=== PATIENT | male | born 1975 | race Two or more races ===

== ENCOUNTER 2016-06-18 20:20 | Emergency (ER) | payer MEDICAID, OTHER ==
[2016-06-18] MEDS ORDERED: ACETAMINOPHEN 325 MG TABLET PO ONE (20:57)
--- NOTE | 2016-06-18 20:57 | ER Document Report ---
ED Medical Screen (RME) - General Stated Complaint: LEFT SHOULDER PAIN Notes: patient is a 41 year old male p/w left arm pain that started today that radiates along his back and chest. feels better with movement. denies trauma admits to ache along his chest that is reproducible to palpation CTAB, nl s1s2 took vicodin earlier and he was able to fall asleep I have greeted and performed a rapid initial assessment of this patient. A comprehensive ED assessment and evaluation of the patient, analysis of test results and completion of the medical decision making process will be conducted by additional ED providers. - Related Data Allergies/Adverse Reactions: No Known Allergies Allergy (Unverified 06/18/16 20:54) Physical Exam - Vital signs Vitals: Temp Pulse Resp BP Pulse Ox 98.3 F 70 16 151/115 H 97 06/18/16 20:50 06/18/16 20:50 06/18/16 20:50 06/18/16 20:50 06/18/16 20:50 Course - Vital Signs Vital signs: Temp Pulse Resp BP Pulse Ox 98.3 F 70 16 151/115 H 97 06/18/16 20:50 06/18/16 20:50 06/18/16 20:50 06/18/16 20:50 06/18/16 20:50
[2016-06-18] MEDS ORDERED: CYCLOBENZAPRINE HCL 10 MG TABLET PO ONE (20:58)
[2016-06-18] MEDS ORDERED: DIAZEPAM 5 MG TABLET PO ONE (23:45)
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
[2016-06-19 00:35] VITALS: BP 137/98
--- NOTE | 2016-06-19 08:47 | EKG REPORT ---
SEVERITY:- NORMAL ECG - SINUS RHYTHM : Confirmed by: Ishmael Brewer MD 19-Jun-2016 08:47:07
== END 2016-06-19 00:33 | disposition home or self-care (01) ==
LOC: ER 20:20
DX: M25.512 Pain in left shoulder (principal); M79.602 Pain in left arm; R07.89 Other chest pain; I10 Essential (primary) hypertension; F17.200 Nicotine dependence, unspecified, uncomplicated; Z79.899 Other long term (current) drug therapy
CPT/HCPCS: 93005; 99283; 73030; 93010; J3490 ×2

== ENCOUNTER 2017-10-13 13:33 | Inpatient (IN) | payer MEDICAID ==
[2017-10-13] MEDS ORDERED: MORPHINE SULFATE 10 MG/ML INJ IV ONE (14:56)
[2017-10-13] MEDS ORDERED: ONDANSETRON HCL INJ/PF 4 MG/2 ML SDV IV ONE (14:56)
--- NOTE | 2017-10-13 15:00 | ER Document Report ---
ED General - General Chief Complaint: Abdominal Pain Stated Complaint: ABDOMINAL PAIN Time Seen by Provider: 10/13/17 14:55 TRAVEL OUTSIDE OF THE [place] IN LAST 30 DAYS: No - HPI Notes: Patient is a 42-year-old male with a history of hypertension who presents to the ED complaining of left lower quadrant abdominal pain 2 days with associated nausea and vomiting. Patient states that he has also been somewhat constipated, but is still having bowel movements. The pain does not radiate. Patient is concerned about diverticulitis. He has not had any hematemesis, melena, or hematochezia. He is still urinating normally without any hematuria or dysuria. Patient states that he has never had a colonoscopy performed in the past. The pain is worsened with pressure applied to that area and when he ambulates. Denies any injury. Patient states that he has had decreased p.o. intake and his last intake was a sip of water about 20 minutes ago. Denies any headache, fever, head injury, neck pain, URI, sore throat, chest pain, palpitations, syncope, cough, shortness of breath, wheeze, dyspnea, diarrhea, urinary retention, dysuria, hematuria, back pain, loss of control of bowel or bladder, numbness/tingling, saddle anesthesia, muscle paralysis/weakness, or rash. - Related Data Allergies/Adverse Reactions: acetaminophen [From Tylenol] Adverse Reaction (Verified 10/13/17 13:34) Past Medical History - Social History Smoking Status: Never Smoker Family History: Reviewed & Not Pertinent Renal/ Medical History: Denies: Hx Peritoneal Dialysis Review of Systems - Review of Systems -: Yes All other systems reviewed and negative Physical Exam - Vital signs Vitals: Temp Pulse Resp BP Pulse Ox 98.5 F 86 20 107/73 96 10/13/17 13:38 10/13/17 13:38 10/13/17 13:38 10/13/17 13:38 10/13/17 13:38 - Notes Notes: PHYSICAL EXAMINATION: GENERAL: Well-appearing, well-nourished and in no acute distress. HEAD: Atraumatic, normocephalic. EYES: Pupils equal round and reactive to light, extraocular movements intact, sclera anicteric, conjunctiva are normal. ENT: Nares patent and without discharge. oropharynx clear without exudates. No tonsilar hypertrophy or erythema. Moist mucous membranes. NECK: Normal range of motion, supple without lymphadenopathy LUNGS: Breath sounds clear to auscultation bilaterally and equal. No wheezes rales or rhonchi. HEART: Regular rate and rhythm without murmurs, rubs, gallops. ABDOMEN: Soft, nondistended abdomen. No guarding, no rebound. No masses appreciated. Normal bowel sounds present. No CVA tenderness bilaterally. + tenderness to the LLQ to palp and percussion. : No obvious hernia, erythema, swelling, warmth, ulceration, rash, or lesions. No urethral discharge. No testicular or penile tenderness. No obvious inguinal adenopathy. Musculoskeletal: FROM to passive/active. Strength 5+/5. Extremities: No cyanosis, clubbing, or edema b/l. Peripheral pulses 2+. Capillary refill less than 3 seconds. NEUROLOGICAL: Normal speech, normal gait. PSYCH: Normal mood, normal affect. SKIN: Warm, Dry, normal turgor, no rashes or lesions noted. Course - Re-evaluation Re-evalutation: 10/13/17 19:36 Patient is an afebrile, well-hydrated, 42-year-old male who presents to the ED with a diverticulitis as well as a nonobstructing renal calculi of the left side. Vitals are currently acceptable, but will add another liter of fluid for his blood pressure. PE is otherwise unremarkable. CBC showed an elevated white count with left shift, no bandemia. CMP generally unremarkable with a creatinine of 1.33. Urinalysis was grossly unremarkable. See CT scan result. Patient has received 2 L of fluid thus far. I did order for Cipro IV as well as Flagyl IV. I did call and review with Dr. Bliss, hospitalist, who accepted patient for admit to the medical floor. Patient is in agreement with plan. - Vital Signs Vital signs: Temp Pulse Resp BP Pulse Ox 98.2 F 74 18 98/68 L 99 10/13/17 19:21 10/13/17 19:21 10/13/17 19:21 10/13/17 19:21 10/13/17 19:21 - Laboratory Result Diagrams: 10/13/17 16:55 10/13/17 18:00 Laboratory results interpreted by me: 10/13/17 10/13/17 10/13/17 16:55 18:00 18:00 WBC 18.6 H Lymphocytes % 12.7 L Absolute Neutrophils 13.9 H Absolute Monocytes 1.8 H Creatinine 1.33 H Est GFR (Non-Af Amer) 58 L Albumin 3.4 L Urine Ketones 20 H Urine Blood SMALL H Discharge - Discharge Clinical Impression: Diverticulitis Condition: Stable Disposition: ADMITTED INPATIENT Admitting Provider: Hospitalist - Dr. Bliss Unit Admitted: Medical Floor
[2017-10-13] MEDS: NORMAL SALINE 1000 ML 1,000 ML IV PRN ×2 (17:00→17:55)
[2017-10-13] MEDS ORDERED: KETOROLAC TROMETHAMINE INJ/PF 30 MG/1 ML SDV IV ONE (17:05)
[2017-10-13 17:10] LABS: ABSOLUTE BASOPHILS # (AUTO) 0.1 10^3/uL (0.0-0.2); ABSOLUTE EOSINOPHILS # (AUTO) 0.4 10^3/uL (0.0-0.6); ABSOLUTE LYMPHOCYTES (AUTO) 2.3 10^3/uL (0.5-4.7); ABSOLUTE MONOCYTES (AUTO) 1.8 10^3/uL (0.1-1.4); ABSOLUTE NEUT (AUTO) 13.9 10^3/uL (1.7-8.2); BASOPHILS % (AUTO) 0.7 % (0-2); HEMATOCRIT 45.8 % (37.9-51.0); HEMOGLOBIN 15.6 g/dL (13.5-17.0); LYMPHOCYTES % (AUTO) 12.7 % (13-45); MEAN CORPUSCULAR HEMOGLOBIN 31.9 pg (27.0-33.4); MEAN CORPUSCULAR VOLUME 94 fl (80-97); PLATELET COUNT 300 10^3/uL (150-450); RED BLOOD COUNT 4.89 10^6/uL (4.35-5.55); SEGMENTED NEUTROPHILS % (AUTO) 74.6 % (42-78); TOTAL CELLS COUNTED % (AUTO) 100 %; WHITE BLOOD COUNT 18.6 10^3/uL (4.0-10.5)
[2017-10-13 18:21] LABS: APPEARANCE,URINE CLEAR; BILIRUBIN,URINE NEGATIVE (NEGATIVE); COLOR,URINE YELLOW; GLUCOSE, URINE NEGATIVE (NEGATIVE); KETONES,URINE 20 mg/dL (NEGATIVE); LEUKOCYTE ESTERASE,URINE NEGATIVE (NEGATIVE); NITRITE,URINE NEGATIVE (NEGATIVE); PROTEIN,URINE NEGATIVE (NEGATIVE); URINE SPECIFIC GRAVITY 1.017; UROBILINOGEN,URINE NEGATIVE mg/dL (<2.0)
[2017-10-13 18:34] LABS: ALANINE AMINOTRANSFERASE 47 U/L (21-72); ALBUMIN 3.4 g/dL (3.5-5.0); ALKALINE PHOSPHATASE 87 U/L (38-126); ANION GAP 11 (5-19); ASPARTATE AMINO TRANSFERASE 24 U/L (17-59); BILIRUBIN,DIRECT 0.4 mg/dL (0.0-0.4); BILIRUBIN,TOTAL 0.6 mg/dL (0.2-1.3); BLOOD UREA NITROGEN 15 mg/dL (7-20); CALCIUM 9.4 mg/dL (8.4-10.2); CARBON DIOXIDE 28 mmol/L (22-30); CHLORIDE 105 mmol/L (98-107); GLUCOSE 83 mg/dL (75-110); LIPASE 43.3 U/L (23-300); SODIUM 143.9 mmol/L (137-145); TOTAL PROTEIN 6.9 g/dL (6.3-8.2)
--- NOTE | 2017-10-13 18:53 | RADIOLOGY REPORT (SQ) ---
EXAM DESCRIPTION: CT ABD/PELVIS WITH IV ONLY COMPLETED DATE/TIME: 10/13/2017 6:35 pm REASON FOR STUDY: LLQ pain, n/v COMPARISON: None. TECHNIQUE: CT scan of the abdomen and pelvis performed using helical scanning technique with dynamic intravenous contrast injection. No oral contrast. Images reviewed with lung, soft tissue, and bone windows. Reconstructed coronal and sagittal MPR images reviewed. Delayed images for evaluation of the urinary system also acquired. All images stored on PACS. All CT scanners at this facility use dose modulation, iterative reconstruction, and/or weight based d osing when appropriate to reduce radiation dose to as low as reasonably achievable (ALARA). [facility]: Dose Right [facility]: CareDose [facility]: Dose Right [facility]: Teradose 4D [facility]: [employer] CONTRAST TYPE AND DOSE: contrast/concentration: Isovue 370.00 mg/ml; Total Contrast Delivered: 100.0 ml; Total Saline Delivered: 50.0 ml RENAL FUNCTION: None required. The patient is less than 50 years old. RADIATION DOSE: CT Rad equipment meets quality standard of care and radiation dose reduction techniq ues were employed. CTDIvol: 17.8 - 20.4 mGy. DLP: 2186 mGy-cm.. LIMITATIONS: None. FINDINGS: LOWER CHEST: No significant findings. No nodules or infiltrates. LIVER: Normal size. No masses. No dilated ducts. SPLEEN: Normal size. No focal lesions. PANCREAS: No masses. No significant calcifications. No adjacent inflammation or peripancreatic fluid collections. Pancreatic duct not dilated. GALLBLADDER: No identified stones by CT criteria. No inflammatory changes to suggest cholecystitis. ADRENAL GLANDS: No significant masses or asymmetry. RIGHT KIDNEY AND URETER: No solid masses. A small nonobstructing upper calyceal calculus. No hydr onephrosis or hydroureter. LEFT KIDNEY AND URETER: No solid masses. 5 mm nonobstructing lower calyceal calculus. No hydronep hrosis or hydroureter. AORTA AND VESSELS: No aneurysm. No dissection. Renal arteries, SMA, celiac without stenosis. RETROPERITONEUM: No retroperitoneal adenopathy, hemorrhage or masses. BOWEL AND PERITONEAL CAVITY: There is thickening of the wall of the terminal ileum the ascending colo n. Sigmoid diverticulosis is present. There is focal area of thickening of the sigmoid with strandi ng in the fat. APPENDIX: Normal. PELVIS: No mass. No free fluid. Normal bladder. ABDOMINAL WALL: No masses. No hernias. BONES: No significant or acute findings. OTHER: No other significant finding. IMPRESSION: 1. Nonobstructing intrarenal calculi. 2. Apparent thickening of the wall of the terminal ileum and the ascending colon concerning for infl ammatory bowel disease. Could be secondary to mere nondistention. 3. Mild sigmoid diverticulitis. TECHNICAL DOCUMENTATION: JOB ID: [id number] Quality ID # [id number]: Final reports with documentation of one or more dose reduction techniques (e.g., Au tomated exposure control, adjustment of the mA and/or kV according to patient size, use of iterative reconstruction technique) 2010 [employer]- All Rights Reserved Reading location - IP/workstation name: [email or web address]
[2017-10-13] MEDS ORDERED: CIPROFLOXACIN 400 MG/D5W RTU 400 MG/200 ML RTUPB IV ONE (19:29)
[2017-10-13] MEDS ORDERED: METRONIDAZOLE 500 MG/NS RTU 100 ML IV ONE (19:30)
[2017-10-13] MEDS ORDERED: NORMAL SALINE 1000 ML 1,000 ML IV ONE (19:34)
[2017-10-13] MEDS ORDERED: FENTANYL CITRATE INJ/PF 100 MCG/2 ML AMPUL IV ONE (19:37)
[2017-10-13] MEDS ORDERED: ACETAMINOPHEN 325 MG TABLET PO PRN ×2 (19:38)
[2017-10-13] MEDS ORDERED: IPRATROPIUM/ALBUTEROL 0.5-2.5 MG/3 ML AMPUL NEB PRN (19:38)
[2017-10-13] MEDS ORDERED: NORMAL SALINE 1000 ML 1,000 ML IV SCH (19:45)
[2017-10-14] MEDS: HEPARIN SOD (PORCINE) 5,000 UNIT/ML 1 ML SYRINGE SUBCUT SCH ×4 (03:53→20:16)
--- NOTE | 2017-10-14 05:29 | PDOC H&P ---
History of Present Illness Admission Date/PCP: 10/13/17 19:37 Patient complains of: Abdominal pain nausea vomiting History of Present Illness: RICHY DUCKWORTH is a 42 year old male with past medical history of hypertension presenting with 2 days of fever, abdominal pain nausea and vomiting of gastric contents. In the emergency room he is found to have acute diverticulitis by exam and supported by positive findings of CT imaging and marketed leukocytosis. He started on empiric antibiotics, symptomatic management and referred to the hospitalist for admission. Patient denies previous episode, exceptional constipation, recent antibiotics and is otherwise felt well. Past Medical History Cardiac Medical History: Reports: Hypertension Psychiatric Medical History: Reports: Tobacco Dependency Social History Information Source: Patient Smoking Status: Current Every Day Smoker Cigarettes Packs Per Day: 1 Frequency of Alcohol Use: None Hx Recreational Drug Use: No Drugs: None Hx Prescription Drug Abuse: No - Advance Directive Resuscitation Status: Full Code Family History Family History: Hypertension Parental Family History Reviewed: Yes Children Family History Reviewed: Yes Sibling(s) Family History Reviewed.: Yes Medication/Allergy Home Medications: Amlodipine Besylate [Norvasc 5 mg Tablet] 5 mg PO DAILY 10/13/17 Lisinopril/Hydrochlorothiazide [Lisinopril-Hctz 20-12.5 mg Tab] 1 tab PO Q12 11/23 Metoprolol Succinate [Toprol Xl] 25 mg PO DAILY 10/13/17 Allergies/Adverse Reactions: acetaminophen [From Tylenol] Adverse Reaction (Verified 10/13/17 13:34) Review of Systems Constitutional: ABSENT: chills, fever(s), headache(s), weight gain, weight loss Eyes: ABSENT: visual disturbances Ears: ABSENT: hearing changes Cardiovascular: ABSENT: chest pain, dyspnea on exertion, edema, orthropnea, palpitations Respiratory: ABSENT: cough, hemoptysis Gastrointestinal: ABSENT: abdominal pain, constipation, diarrhea, hematemesis, hematochezia, nausea, vomiting Genitourinary: ABSENT: dysuria, hematuria Musculoskeletal: ABSENT: joint swelling Integumentary: ABSENT: rash, wounds Neurological: ABSENT: abnormal gait, abnormal speech, confusion, dizziness, focal weakness, syncope Psychiatric: ABSENT: anxiety, depression, homidical ideation, suicidal ideation Endocrine: ABSENT: cold intolerance, heat intolerance, polydipsia, polyuria Hematologic/Lymphatic: ABSENT: easy bleeding, easy bruising Physical Exam Vital Signs: Temp Pulse Resp BP Pulse Ox 98.5 F 81 16 105/86 H 98 10/14/17 00:00 10/14/17 00:00 10/14/17 00:00 10/14/17 00:00 10/14/17 00:00 Intake & Output 10/12/17 10/13/17 10/14/17 11:59 11:59 11:59 Weight 102 kg General appearance: PRESENT: cooperative, mild distress, well-developed, well- nourished Head exam: PRESENT: atraumatic, normocephalic Eye exam: PRESENT: conjunctiva pink, EOMI, PERRLA. ABSENT: scleral icterus Ear exam: PRESENT: normal external ear exam Mouth exam: PRESENT: moist, tongue midline Neck exam: ABSENT: carotid bruit, JVD, lymphadenopathy, thyromegaly Respiratory exam: PRESENT: clear to auscultation [place]ie. ABSENT: rales, rhonchi, wheezes Cardiovascular exam: PRESENT: RRR. ABSENT: diastolic murmur, rubs, systolic murmur Pulses: PRESENT: normal dorsalis pedis pul Vascular exam: PRESENT: normal capillary refill GI/Abdominal exam: PRESENT: normal bowel sounds, soft, tenderness - Left lower quadrant. ABSENT: distended, guarding, mass, organolmegaly, rebound Rectal exam: PRESENT: deferred Extremities exam: PRESENT: full ROM. ABSENT: calf tenderness, clubbing, pedal edema Neurological exam: PRESENT: alert, awake, oriented to person, oriented to place , oriented to time, oriented to situation, CN II-XII grossly intact. ABSENT: motor sensory deficit Psychiatric exam: PRESENT: appropriate affect, normal mood. ABSENT: homicidal ideation, suicidal ideation Skin exam: PRESENT: dry, intact, warm. ABSENT: cyanosis, rash Results Impressions: Abdomen/Pelvis CT 10/13/17 14:57 IMPRESSION: 1. Nonobstructing intrarenal calculi. 2. Apparent thickening of the wall of the terminal ileum and the ascending colon concerning for inflammatory bowel disease. Could be secondary to mere nondistention. 3. Mild sigmoid diverticulitis. Assessment & Plan - Diagnosis (1) Diverticulitis Is this a current diagnosis for this admission?: Yes Plan: N.p.o., Jenni and Sydney, follow-up CBC and blood culture (2) Nausea & vomiting Is this a current diagnosis for this admission?: Yes Plan: Secondary to #1 symptomatic management (3) Abdominal pain Is this a current diagnosis for this admission?: Yes Plan: Secondary to #1 systematic management - Time Time Spent: 30 to 50 Minutes
[2017-10-14] MEDS: METRONIDAZOLE 500 MG TABLET PO SCH ×4 (05:37→23:45)
[2017-10-14] MEDS: CIPROFLOXACIN 400 MG/D5W RTU 400 MG/200 ML RTUPB IV SCH ×2 (05:37→17:27)
[2017-10-14 07:32] LABS: ABSOLUTE BASOPHILS # (AUTO) 0.1 10^3/uL (0.0-0.2); ABSOLUTE EOSINOPHILS # (AUTO) 0.5 10^3/uL (0.0-0.6); ABSOLUTE LYMPHOCYTES (AUTO) 2.5 10^3/uL (0.5-4.7); ABSOLUTE MONOCYTES (AUTO) 1.6 10^3/uL (0.1-1.4); ABSOLUTE NEUT (AUTO) 9.8 10^3/uL (1.7-8.2); BASOPHILS % (AUTO) 0.4 % (0-2); EOSINOPHILS % (AUTO) 3.2 % (0-6); HEMATOCRIT 37.7 % (37.9-51.0); LYMPHOCYTES % (AUTO) 17.1 % (13-45); MEAN CORPUSCULAR HEMOGLOBIN 32.1 pg (27.0-33.4); MEAN CORPUSCULAR HGB CONC 34.2 g/dL (32.0-36.0); MEAN CORPUSCULAR VOLUME 94 fl (80-97); MONOCYTES % (AUTO) 11.1 % (3-13); PLATELET COUNT 250 10^3/uL (150-450); RED BLOOD COUNT 4.02 10^6/uL (4.35-5.55); RED CELL DISTRIBUTION WIDTH 12.8 % (11.5-14.0); SEGMENTED NEUTROPHILS % (AUTO) 68.2 % (42-78); TOTAL CELLS COUNTED % (AUTO) 100 %; WHITE BLOOD COUNT 14.4 10^3/uL (4.0-10.5)
[2017-10-14 07:39] LABS: HEMOGLOBIN 12.9 g/dL (13.5-17.0)
[2017-10-14 07:53] LABS: ANION GAP 10 (5-19); BLOOD UREA NITROGEN 13 mg/dL (7-20); CALCIUM 8.4 mg/dL (8.4-10.2); CARBON DIOXIDE 23 mmol/L (22-30); CHLORIDE 109 mmol/L (98-107); GLUCOSE 83 mg/dL (75-110); POTASSIUM 3.7 mmol/L (3.6-5.0); SODIUM 141.7 mmol/L (137-145)
[2017-10-14] MEDS: FENTANYL CITRATE INJ/PF 100 MCG/2 ML AMPUL IV PRN ×2 (08:46→18:28)
[2017-10-14] MEDS: NICOTINE 14 MG/24 HR PATCH.TD24 TD SCH (08:47)
--- NOTE | 2017-10-14 20:08 | PDOC PROGRESS REPORT ---
Subjective Progress Note for:: 10/14/17 Subjective:: Still with left lower quadrant abdominal pain. He tolerated clear liquid diet and would like advance. No fever or chills, no chest pain or shortness of breath or palpitations. Reason For Visit: DIVERTICULITS Physical Exam Vital Signs: Temp Pulse Resp BP Pulse Ox 98.6 F 70 14 109/75 99 10/14/17 15:35 10/14/17 16:00 10/14/17 16:00 10/14/17 15:35 10/14/17 16:00 Intake & Output 10/13/17 10/14/17 10/15/17 06:59 06:59 06:59 Intake Total 500 Balance 500 Weight 102 kg GEN: NAD, well-developed, well-nourished CV: RRR, NL S1S2 LUNGS: CTA bilaterally ABDOMEN Soft, left lower quadrant tenderness, no rebound or guarding, +BS EXTERMITIES: No e/c/c NEURO: Alert, oriented 3, nonfocal Results Laboratory Results: 10/14/17 06:57 10/14/17 06:57 10/14/17 10/14/17 06:57 06:57 WBC 14.4 H RBC 4.02 L Hgb 12.9 L D Hct 37.7 L MCV 94 MCH 32.1 MCHC 34.2 RDW 12.8 Plt Count 250 Seg Neutrophils % 68.2 Lymphocytes % 17.1 Monocytes % 11.1 Eosinophils % 3.2 Basophils % 0.4 Absolute Neutrophils 9.8 H Absolute Lymphocytes 2.5 Absolute Monocytes 1.6 H Absolute Eosinophils 0.5 Absolute Basophils 0.1 Sodium 141.7 Potassium 3.7 Chloride 109 H Carbon Dioxide 23 Anion Gap 10 BUN 13 Creatinine 1.12 Est GFR ( Amer) > 60 Est GFR (Non-Af Amer) > 60 Glucose 83 Calcium 8.4 Impressions: Abdomen/Pelvis CT 10/13/17 14:57 IMPRESSION: 1. Nonobstructing intrarenal calculi. 2. Apparent thickening of the wall of the terminal ileum and the ascending colon concerning for inflammatory bowel disease. Could be secondary to mere nondistention. 3. Mild sigmoid diverticulitis. Assessment & Plan - Inpatient Certification Based on my medical assessment, after consideration of the patient's comorbidities, presenting symptoms, or acuity I expect that the services needed warrant INPATIENT care.: Yes I certify that my determination is in accordance with my understanding of Medicare's requirements for reasonable and necessary INPATIENT services [42 CFR 412.3e].: Yes Medical Necessity: Need Close Monitoring Due to Risk of Patient Decompensation, Need For IV Fluids, Need for IV Antibiotics - Plan Summary Plan Summary: (1) Diverticulitis Is this a current diagnosis for this admission?: Yes Plan: Patient with some improvement, will continue with IV Cipro and Flagyl for now. Follow-up CBC and blood culture. Will advance diet as tolerated. We will switch antibiotics to p.o. if tolerating oral diet. (2) Nausea & vomiting Is this a current diagnosis for this admission?: Yes Plan: Secondary to #1. Improved. Continue symptomatic management. Continue IV antibiotics for #1 for now until patient is able to tolerate diet better. (3) Abdominal pain Is this a current diagnosis for this admission?: Yes Plan: Secondary to #1. Continue systematic management. (4) acute kidney injury Is this a current diagnosis for this admission?: Yes Plan: Secondary to decrease p.o. intake secondary to #1. Creatinine already improving. We will continue IV fluids. Diet as tolerated.
[2017-10-14] MEDS ORDERED: NORMAL SALINE 1000 ML 1,000 ML IV PRN (20:11)
[2017-10-15] MEDS: FENTANYL CITRATE INJ/PF 100 MCG/2 ML AMPUL IV PRN (00:03)
[2017-10-15] MEDS ORDERED: ONDANSETRON HCL INJ/PF 4 MG/2 ML SDV ONE (02:18)
[2017-10-15] MEDS ORDERED: ONDANSETRON HCL INJ/PF 4 MG/2 ML SDV IV ONE (02:30)
[2017-10-15] MEDS ORDERED: LORAZEPAM INJ 2 MG/1 ML VIAL IV ONE (02:30)
[2017-10-15] MEDS: HEPARIN SOD (PORCINE) 5,000 UNIT/ML 1 ML SYRINGE SUBCUT SCH ×3 (05:26→20:53)
[2017-10-15] MEDS: CIPROFLOXACIN 400 MG/D5W RTU 400 MG/200 ML RTUPB IV SCH ×2 (05:49→17:35)
[2017-10-15] MEDS: METRONIDAZOLE 500 MG TABLET PO SCH ×4 (05:49→23:34)
[2017-10-15 07:53] LABS: ABSOLUTE BASOPHILS # (AUTO) 0.1 10^3/uL (0.0-0.2); ABSOLUTE EOSINOPHILS # (AUTO) 0.2 10^3/uL (0.0-0.6); ABSOLUTE LYMPHOCYTES (AUTO) 1.5 10^3/uL (0.5-4.7); ABSOLUTE MONOCYTES (AUTO) 1.3 10^3/uL (0.1-1.4); ABSOLUTE NEUT (AUTO) 12.4 10^3/uL (1.7-8.2); BASOPHILS % (AUTO) 0.7 % (0-2); EOSINOPHILS % (AUTO) 1.4 % (0-6); HEMATOCRIT 38.2 % (37.9-51.0); LYMPHOCYTES % (AUTO) 9.4 % (13-45); MEAN CORPUSCULAR HEMOGLOBIN 31.7 pg (27.0-33.4); MEAN CORPUSCULAR HGB CONC 34.1 g/dL (32.0-36.0); MEAN CORPUSCULAR VOLUME 93 fl (80-97); MONOCYTES % (AUTO) 8.7 % (3-13); PLATELET COUNT 260 10^3/uL (150-450); RED CELL DISTRIBUTION WIDTH 12.9 % (11.5-14.0); SEGMENTED NEUTROPHILS % (AUTO) 79.8 % (42-78); TOTAL CELLS COUNTED % (AUTO) 100 %; WHITE BLOOD COUNT 15.5 10^3/uL (4.0-10.5)
[2017-10-15 08:13] LABS: ANION GAP 8 (5-19); BLOOD UREA NITROGEN 8 mg/dL (7-20); CALCIUM 8.7 mg/dL (8.4-10.2); CARBON DIOXIDE 26 mmol/L (22-30); CHLORIDE 110 mmol/L (98-107); GLUCOSE 113 mg/dL (75-110); POTASSIUM 3.6 mmol/L (3.6-5.0); SODIUM 143.8 mmol/L (137-145)
[2017-10-15] MEDS: NICOTINE 14 MG/24 HR PATCH.TD24 TD SCH (09:06)
[2017-10-15] MEDS ORDERED: OXYCODONE-ACETAMINOPHEN 5-325 MG TABLET PO PRN (16:33)
--- NOTE | 2017-10-15 16:44 | PDOC PROGRESS REPORT ---
Subjective Progress Note for:: 10/15/17 Subjective:: Still with left lower quadrant abdominal pain, tylenol not helping well enough. He is still on clear liquid diet and does not wish to aguayo advancing due to pain. No fever or chills, no chest pain or shortness of breath or palpitations. Reason For Visit: DIVERTICULITS Physical Exam Vital Signs: Temp Pulse Resp BP Pulse Ox 98.6 F 65 18 117/82 94 10/15/17 11:36 10/15/17 11:36 10/15/17 11:36 10/15/17 11:36 10/15/17 11:36 Intake & Output 10/14/17 10/15/17 10/16/17 06:59 06:59 06:59 Intake Total 900 300 Balance 900 300 Weight 102 kg 102.1 kg GEN: NAD, well-developed, well-nourished CV: RRR, NL S1S2 LUNGS: CTA bilaterally ABDOMEN Soft, left lower quadrant tenderness, no rebound or guarding, +BS EXTERMITIES: No e/c/c NEURO: Alert, oriented 3, nonfocal Results Laboratory Results: 10/15/17 07:32 10/15/17 07:32 10/15/17 10/15/17 07:32 07:32 WBC 15.5 H RBC 4.10 L Hgb 13.0 L Hct 38.2 MCV 93 MCH 31.7 MCHC 34.1 RDW 12.9 Plt Count 260 Seg Neutrophils % 79.8 H Lymphocytes % 9.4 L Monocytes % 8.7 Eosinophils % 1.4 Basophils % 0.7 Absolute Neutrophils 12.4 H Absolute Lymphocytes 1.5 Absolute Monocytes 1.3 Absolute Eosinophils 0.2 Absolute Basophils 0.1 Sodium 143.8 Potassium 3.6 Chloride 110 H Carbon Dioxide 26 Anion Gap 8 BUN 8 Creatinine 1.02 Est GFR ( Amer) > 60 Est GFR (Non-Af Amer) > 60 Glucose 113 H Calcium 8.7 Impressions: Abdomen/Pelvis CT 10/13/17 14:57 IMPRESSION: 1. Nonobstructing intrarenal calculi. 2. Apparent thickening of the wall of the terminal ileum and the ascending colon concerning for inflammatory bowel disease. Could be secondary to mere nondistention. 3. Mild sigmoid diverticulitis. Assessment & Plan - Plan Summary Plan Summary: (1) Diverticulitis Is this a current diagnosis for this admission?: Yes Plan: Patient with slow improvement, will continue with IV Cipro and Flagyl for now. He still reports nausea follow-up CBC and blood cultures results. Will advance diet as tolerated. We will switch antibiotics to p.o. if tolerating oral diet. (2) Nausea & vomiting Is this a current diagnosis for this admission?: Yes Plan: Secondary to #1. Improved. Continue symptomatic management. Continue IV antibiotics for #1 for now until patient is able to tolerate diet better. Zofran as needed. (3) Abdominal pain Is this a current diagnosis for this admission?: Yes Plan: Secondary to #1. Continue systematic management. Trial of Percocet for pain as Tylenol not effective. (4) acute kidney injury Is this a current diagnosis for this admission?: Yes Plan: Secondary to decrease p.o. intake secondary to #1. Creatinine already improving. We will continue IV fluids. Diet as tolerated.
[2017-10-15] MEDS: TRAMADOL HCL 50 MG TABLET PO PRN (18:11)
[2017-10-16] MEDS: TRAMADOL HCL 50 MG TABLET PO PRN (03:35)
[2017-10-16] MEDS: HEPARIN SOD (PORCINE) 5,000 UNIT/ML 1 ML SYRINGE SUBCUT SCH ×3 (05:08→21:09)
[2017-10-16] MEDS: CIPROFLOXACIN 400 MG/D5W RTU 400 MG/200 ML RTUPB IV SCH ×2 (05:36→17:12)
[2017-10-16] MEDS: METRONIDAZOLE 500 MG TABLET PO SCH ×4 (05:36→23:28)
[2017-10-16 06:26] LABS: ABSOLUTE BASOPHILS # (AUTO) 0.2 10^3/uL (0.0-0.2); ABSOLUTE EOSINOPHILS # (AUTO) 0.4 10^3/uL (0.0-0.6); ABSOLUTE MONOCYTES (AUTO) 1.3 10^3/uL (0.1-1.4); ABSOLUTE NEUT (AUTO) 9.2 10^3/uL (1.7-8.2); BASOPHILS % (AUTO) 1.5 % (0-2); EOSINOPHILS % (AUTO) 3.1 % (0-6); HEMATOCRIT 37.4 % (37.9-51.0); HEMOGLOBIN 12.6 g/dL (13.5-17.0); LYMPHOCYTES % (AUTO) 15.3 % (13-45); MEAN CORPUSCULAR HEMOGLOBIN 31.1 pg (27.0-33.4); MEAN CORPUSCULAR HGB CONC 33.8 g/dL (32.0-36.0); MEAN CORPUSCULAR VOLUME 92 fl (80-97); PLATELET COUNT 239 10^3/uL (150-450); RED BLOOD COUNT 4.06 10^6/uL (4.35-5.55); RED CELL DISTRIBUTION WIDTH 12.9 % (11.5-14.0); SEGMENTED NEUTROPHILS % (AUTO) 70.1 % (42-78); TOTAL CELLS COUNTED % (AUTO) 100 %; WHITE BLOOD COUNT 13.1 10^3/uL (4.0-10.5)
[2017-10-16 07:16] LABS: ALANINE AMINOTRANSFERASE 31 U/L (21-72); ALBUMIN 2.8 g/dL (3.5-5.0); ALKALINE PHOSPHATASE 77 U/L (38-126); ANION GAP 10 (5-19); ASPARTATE AMINO TRANSFERASE 21 U/L (17-59); BILIRUBIN,DIRECT 0.2 mg/dL (0.0-0.4); BILIRUBIN,TOTAL 0.2 mg/dL (0.2-1.3); BLOOD UREA NITROGEN 6 mg/dL (7-20); CALCIUM 8.8 mg/dL (8.4-10.2); CARBON DIOXIDE 25 mmol/L (22-30); CHLORIDE 107 mmol/L (98-107); GLUCOSE 87 mg/dL (75-110); POTASSIUM 3.6 mmol/L (3.6-5.0); SODIUM 141.8 mmol/L (137-145); TOTAL PROTEIN 5.8 g/dL (6.3-8.2)
[2017-10-16] MEDS: ONDANSETRON HCL INJ/PF 4 MG/2 ML SDV IV PRN (08:40)
[2017-10-16] MEDS: NICOTINE 14 MG/24 HR PATCH.TD24 TD SCH (08:41)
--- NOTE | 2017-10-16 16:32 | PDOC PROGRESS REPORT ---
Subjective Progress Note for:: 10/16/17 Subjective:: Still with left lower quadrant abdominal pain, Tramadol helping. He is still on clear liquid diet and open to advancing diet today. No fever or chills, no chest pain or shortness of breath or palpitations. Reason For Visit: DIVERTICULITS Physical Exam Vital Signs: Temp Pulse Resp BP Pulse Ox 98 F 60 18 120/64 96 10/16/17 16:00 10/16/17 16:00 10/16/17 16:00 10/16/17 16:00 10/16/17 16:00 Intake & Output 10/15/17 10/16/17 10/17/17 06:59 06:59 06:59 Intake Total 900 2555 320 Balance 900 2555 320 Weight 102.1 kg 101.1 kg GEN: NAD, well-developed, well-nourished CV: RRR, NL S1S2 LUNGS: CTA bilaterally ABDOMEN Soft, left lower quadrant tenderness--improved some, no rebound or guarding, +BS EXTERMITIES: No e/c/c NEURO: Alert, oriented 3, nonfocal Results Laboratory Results: 10/16/17 05:53 10/16/17 05:53 10/16/17 10/16/17 05:53 05:53 WBC 13.1 H RBC 4.06 L Hgb 12.6 L Hct 37.4 L MCV 92 MCH 31.1 MCHC 33.8 RDW 12.9 Plt Count 239 Seg Neutrophils % 70.1 Lymphocytes % 15.3 Monocytes % 10.0 Eosinophils % 3.1 Basophils % 1.5 Absolute Neutrophils 9.2 H Absolute Lymphocytes 2.0 Absolute Monocytes 1.3 Absolute Eosinophils 0.4 Absolute Basophils 0.2 Sodium 141.8 Potassium 3.6 Chloride 107 Carbon Dioxide 25 Anion Gap 10 BUN 6 L Creatinine 1.11 Est GFR ( Amer) > 60 Est GFR (Non-Af Amer) > 60 Glucose 87 Calcium 8.8 Total Bilirubin 0.2 AST 21 ALT 31 Alkaline Phosphatase 77 Total Protein 5.8 L Albumin 2.8 L Impressions: Abdomen/Pelvis CT 10/13/17 14:57 IMPRESSION: 1. Nonobstructing intrarenal calculi. 2. Apparent thickening of the wall of the terminal ileum and the ascending colon concerning for inflammatory bowel disease. Could be secondary to mere nondistention. 3. Mild sigmoid diverticulitis. Assessment & Plan - Plan Summary Plan Summary: (1) Diverticulitis Is this a current diagnosis for this admission?: Yes Plan: Patient with slow improvement, will continue with IV Cipro and Flagyl for now. CBC improving, though still with slight leukocytosis today. Follow-up CBC and blood cultures results. Will advance diet to full liquid and then regular if tolerated. We will switch antibiotics to p.o. if tolerating oral diet. (2) Nausea & vomiting Is this a current diagnosis for this admission?: Yes Plan: Secondary to #1. Improved. Continue symptomatic management. Continue IV antibiotics for #1 for now until patient is able to tolerate diet better. Zofran as needed. (3) Abdominal pain Is this a current diagnosis for this admission?: Yes Plan: Secondary to #1. Continue pain management with tramadol as needed. (4) acute kidney injury Is this a current diagnosis for this admission?: Yes Plan: Secondary to decrease p.o. intake secondary to #1. Creatinine has normalized. We will continue IV fluids for now until he tolerating diet better. Disposition: Possible discharge home in a.m. if doing better and tolerating diet.
[2017-10-17] MEDS: HEPARIN SOD (PORCINE) 5,000 UNIT/ML 1 ML SYRINGE SUBCUT SCH (04:31)
[2017-10-17] MEDS: METRONIDAZOLE 500 MG TABLET PO SCH ×4 (05:35→22:58)
[2017-10-17] MEDS: CIPROFLOXACIN 400 MG/D5W RTU 400 MG/200 ML RTUPB IV SCH (05:35)
[2017-10-17 07:27] LABS: ABSOLUTE BASOPHILS # (AUTO) 0.1 10^3/uL (0.0-0.2); ABSOLUTE EOSINOPHILS # (AUTO) 0.5 10^3/uL (0.0-0.6); ABSOLUTE LYMPHOCYTES (AUTO) 1.8 10^3/uL (0.5-4.7); ABSOLUTE MONOCYTES (AUTO) 1.4 10^3/uL (0.1-1.4); ABSOLUTE NEUT (AUTO) 8.9 10^3/uL (1.7-8.2); BASOPHILS % (AUTO) 0.6 % (0-2); EOSINOPHILS % (AUTO) 4.2 % (0-6); HEMATOCRIT 39.4 % (37.9-51.0); HEMOGLOBIN 13.4 g/dL (13.5-17.0); LYMPHOCYTES % (AUTO) 14.2 % (13-45); MEAN CORPUSCULAR HEMOGLOBIN 31.5 pg (27.0-33.4); MEAN CORPUSCULAR VOLUME 93 fl (80-97); MONOCYTES % (AUTO) 11.1 % (3-13); PLATELET COUNT 283 10^3/uL (150-450); RED BLOOD COUNT 4.26 10^6/uL (4.35-5.55); RED CELL DISTRIBUTION WIDTH 12.7 % (11.5-14.0); SEGMENTED NEUTROPHILS % (AUTO) 69.9 % (42-78); TOTAL CELLS COUNTED % (AUTO) 100 %; WHITE BLOOD COUNT 12.7 10^3/uL (4.0-10.5)
[2017-10-17 07:57] LABS: ANION GAP 10 (5-19); BLOOD UREA NITROGEN 9 mg/dL (7-20); CARBON DIOXIDE 26 mmol/L (22-30); CHLORIDE 107 mmol/L (98-107); GLUCOSE 84 mg/dL (75-110); POTASSIUM 3.7 mmol/L (3.6-5.0); SODIUM 142.9 mmol/L (137-145)
[2017-10-17] MEDS: ONDANSETRON HCL INJ/PF 4 MG/2 ML SDV IV PRN (08:15)
[2017-10-17] MEDS: NICOTINE 14 MG/24 HR PATCH.TD24 TD SCH (09:44)
--- NOTE | 2017-10-17 13:30 | EKG REPORT ---
SEVERITY:- NORMAL ECG - SINUS RHYTHM : Confirmed by: Ishmael Brewer MD 17-Oct-2017 13:29:50
--- NOTE | 2017-10-17 14:54 | PDOC PROGRESS REPORT ---
Subjective Progress Note for:: 10/17/17 Subjective:: Continues to have LLQ abdominal pain. Somewhat improved. nausea persists. Will switch to PO antibiotics. Hope to discharge to home in am if able to tolerate PO meds and food. Reason For Visit: DIVERTICULITS Physical Exam Vital Signs: Temp Pulse Resp BP Pulse Ox 98.2 F 64 20 111/73 96 10/17/17 11:25 10/17/17 11:25 10/17/17 11:25 10/17/17 11:25 10/17/17 11:25 Intake & Output 10/16/17 10/17/17 10/18/17 06:59 06:59 06:59 Intake Total 2555 1966 400 Balance 2555 1966 400 Weight 101.1 kg 101.6 kg General appearance: PRESENT: no acute distress Ear exam: PRESENT: normal external ear exam Respiratory exam: PRESENT: symmetrical, unlabored. ABSENT: wheezes Cardiovascular exam: PRESENT: RRR GI/Abdominal exam: PRESENT: normal bowel sounds, soft, tenderness Rectal exam: PRESENT: deferred Extremities exam: ABSENT: pedal edema Neurological exam: PRESENT: alert, awake, oriented to person, oriented to place , oriented to time, oriented to situation Psychiatric exam: PRESENT: appropriate affect Skin exam: ABSENT: petechiae Results Laboratory Results: 10/17/17 06:57 10/17/17 06:57 10/17/17 10/17/17 06:57 06:57 WBC 12.7 H RBC 4.26 L Hgb 13.4 L Hct 39.4 MCV 93 MCH 31.5 MCHC 34.0 RDW 12.7 Plt Count 283 Seg Neutrophils % 69.9 Lymphocytes % 14.2 Monocytes % 11.1 Eosinophils % 4.2 Basophils % 0.6 Absolute Neutrophils 8.9 H Absolute Lymphocytes 1.8 Absolute Monocytes 1.4 Absolute Eosinophils 0.5 Absolute Basophils 0.1 Sodium 142.9 Potassium 3.7 Chloride 107 Carbon Dioxide 26 Anion Gap 10 BUN 9 Creatinine 1.17 Est GFR ( Amer) > 60 Est GFR (Non-Af Amer) > 60 Glucose 84 Calcium 9.0 Impressions: Abdomen/Pelvis CT 10/13/17 14:57 IMPRESSION: 1. Nonobstructing intrarenal calculi. 2. Apparent thickening of the wall of the terminal ileum and the ascending colon concerning for inflammatory bowel disease. Could be secondary to mere nondistention. 3. Mild sigmoid diverticulitis. Assessment & Plan - Diagnosis (1) Abdominal pain Is this a current diagnosis for this admission?: Yes Plan: Due to diverticulitis (2) Diverticulitis Is this a current diagnosis for this admission?: Yes Plan: Continue Flagyl. Switch IV Cipro to PO Levaquin (3) Nausea & vomiting Is this a current diagnosis for this admission?: Yes Plan: Symptomatic treatment - Time Time Spent with patient: 25-34 minutes
[2017-10-17] MEDS ORDERED: LEVOFLOXACIN 750 MG TABLET PO SCH (18:00)
[2017-10-17] MEDS ORDERED: LACTOBACILLUS ACIDOPHILUS 250 MG TAB PO SCH (18:00)
[2017-10-18] MEDS ORDERED: ONDANSETRON 4 MG TAB.RAPDIS PO PRN (05:25)
[2017-10-18] MEDS: METRONIDAZOLE 500 MG TABLET PO SCH ×2 (05:40→12:43)
[2017-10-18 08:26] VITALS: BP 123/74
--- NOTE | 2017-10-18 10:51 | PDOC DISCHARGE SUMMARY ---
General - Admit/Disc Date/PCP Admission Date/Primary Care Provider: 10/13/17 19:37 Discharge Date: 10/18/17 - Discharge Diagnosis (1) Abdominal pain Is this a current diagnosis for this admission?: Yes (2) Diverticulitis Is this a current diagnosis for this admission?: Yes (3) Nausea & vomiting Is this a current diagnosis for this admission?: Yes - Additional Information Resuscitation Status: Full Code Discharge Diet: Other (Comments) - Diverticulitis diet Discharge Activity: Activity As Tolerated Prescriptions: Ondansetron [Zofran Odt 4 mg Tablet] 4 mg PO Q4HP PRN 3 Days #12 tab.rapdis PRN Reason: Tramadol HCl [Ultram 50 mg Tablet] 50 mg PO Q6HP PRN 3 Days #10 tablet PRN Reason: Lactobacillus Acidophilus [Bacid 250 mg Tablet] 500 mg PO DAILY 10 Days #10 tab Levofloxacin [Levaquin 750 mg Tablet] 750 mg PO QPM 5 Days #5 tablet Metronidazole [Flagyl 500 mg Tablet] 500 mg PO Q6 5 Days #20 tablet Nicotine [Nicoderm 14 mg/24 Hr Transdermal Patch] 1 each TD DAILY 30 Days #30 patch.td24 Home Medications: Lisinopril/Hydrochlorothiazide [Lisinopril-Hctz 20-12.5 mg Tab] 1 tab PO Q12 11/23 Metoprolol Succinate [Toprol Xl] 25 mg PO DAILY 10/13/17 Acetaminophen [Tylenol 325 mg Tablet] 650 mg PO Q6HP PRN tablet 10/18/17 Lactobacillus Acidophilus [Bacid 250 mg Tablet] 500 mg PO DAILY 10 Days #10 tab 10/18/17 Levofloxacin [Levaquin 750 mg Tablet] 750 mg PO QPM 5 Days #5 tablet 10/18/17 Metronidazole [Flagyl 500 mg Tablet] 500 mg PO Q6 5 Days #20 tablet 10/18/17 Nicotine [Nicoderm 14 mg/24 Hr Transdermal Patch] 1 each TD DAILY 30 Days #30 patch.td24 10/18/17 Ondansetron [Zofran Odt 4 mg Tablet] 4 mg PO Q4HP PRN 3 Days #12 tab.rapdis 04/25 Tramadol HCl [Ultram 50 mg Tablet] 50 mg PO Q6HP PRN 3 Days #10 tablet 10/18/17 Amlodipine Besylate [Norvasc 5 mg Tablet] 5 mg PO DAILY #0 10/21/17 History of Present Illness History of Present Illness: RICHY DUCKWORTH is a 42 year old male with past medical history of Hypertension Tobacco dependence He presented to the hospital on October 13 with a 2 day history of fever abdominal pain nausea and vomiting. He was found to have leukocytosis and a CAT scan showed acute diverticulitis. He was started on IV antibiotics, antiemetics and analgesics. His diet was gradually advanced. He feels better. Antibiotics have been switched to p.o. Pain is improved. He is stable for discharge home. Physical Exam Vital Signs: Temp Pulse Resp BP Pulse Ox 98.0 F 63 18 123/74 96 10/18/17 08:00 10/18/17 08:00 10/18/17 08:00 10/18/17 08:00 10/18/17 08:00 Intake & Output 10/17/17 10/18/17 10/19/17 06:59 06:59 06:59 Intake Total 1966 1227 Balance 1965 1227 Weight 101.6 kg 101.6 kg General appearance: PRESENT: no acute distress Respiratory exam: PRESENT: symmetrical, unlabored Psychiatric exam: PRESENT: appropriate affect Results Laboratory Results: 10/17/17 06:57 10/17/17 06:57 Impressions: Abdomen/Pelvis CT 10/13/17 14:57 IMPRESSION: 1. Nonobstructing intrarenal calculi. 2. Apparent thickening of the wall of the terminal ileum and the ascending colon concerning for inflammatory bowel disease. Could be secondary to mere nondistention. 3. Mild sigmoid diverticulitis. Status: Imported from PACS Qualifiers - * PATIENT BEING DISCHARGED WITH ANY OF THE FOLLOWING DIAGNOSIS: No Plan Time Spent: Greater than 30 Minutes
[2017-10-18] MEDS: NICOTINE 14 MG/24 HR PATCH.TD24 TD SCH (11:46)
[2017-10-19] MEDS ORDERED: LACTOBACILLUS ACIDOPHILUS 250 MG TAB PO SCH (10:00)
== END 2017-10-18 13:00 | disposition home or self-care (01) | DRG 392 ==
LOC: ER 13:33 → EH 19:37 → 5 23:35
PROVIDERS: ADMIT Internal Medicine; ATTEND Internal Medicine
DX: K57.32 Diverticulitis of large intestine without perforation or abscess without bleeding (principal); N17.9 Acute kidney failure, unspecified; I10 Essential (primary) hypertension; F17.210 Nicotine dependence, cigarettes, uncomplicated; K59.00 Constipation, unspecified; Z82.49 Family history of ischemic heart disease and other diseases of the circulatory system; Z88.6 Allergy status to analgesic agent
CPT/HCPCS: 36415; 74177; 80048; 80053; 80076; 81001; 83690; 85025; 87040; 93005; 93010; 96361; 96374; 96375; 99285; J0744; J1644; J1885; J2405; J3010; J7030; S0119

== ENCOUNTER 2017-12-08 01:15 | Emergency (ER) | payer MEDICAID ==
[2017-12-08] MEDS ORDERED: MORPHINE SULFATE 10 MG/ML INJ IM ONE (02:21)
[2017-12-08] MEDS ORDERED: SILVER SULFADIAZINE 1% CREAM 25 GM TP ONE (02:22)
[2017-12-08] MEDS ORDERED: PROMETHAZINE HCL 25 MG TABLET PO ONE (02:22)
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
[2017-12-08 03:38] VITALS: BP 130/93
== END 2017-12-08 03:30 | disposition home or self-care (01) ==
LOC: ER 01:15
DX: T25.212A Burn of second degree of left ankle, initial encounter (principal); T22.111A Burn of first degree of right forearm, initial encounter; T25.122A Burn of first degree of left foot, initial encounter; T25.121A Burn of first degree of right foot, initial encounter; X12.XXXA Contact with other hot fluids, initial encounter; Y92.009 Unspecified place in unspecified non-institutional (private) residence as the place of occurrence of the external cause; F17.200 Nicotine dependence, unspecified, uncomplicated; I10 Essential (primary) hypertension
CPT/HCPCS: 99283; 96372; J2270; J3490 ×2

== ENCOUNTER 2018-06-12 21:45 | Emergency (ER) | payer MEDICAID ==
[2018-06-12] MEDS ORDERED: MORPHINE SULFATE 10 MG/ML INJ IV ONE (23:05)
--- NOTE | 2018-06-12 23:07 | ER Document Report ---
ED Medical Screen (RME) - General Chief Complaint: Abdominal Pain Stated Complaint: ABDOMINAL PAIN/RASH Time Seen by Provider: 06/12/18 22:48 Primary Care Provider: ANSLEY CM DO [Primary Care Provider] - Follow up as needed Notes: Patient is a 43-year-old male who presents to the emergency department with a chief complaint of left lower quadrant abdominal pain. He describes the pain as a pain that comes and goes and is a throbbing, stabbing pain. He was diagnosed with diverticulitis last year and was admitted. He states that the pain feels the same. He also has a history of hypertension, and has not taken his high blood pressure medication this evening. TRAVEL OUTSIDE OF THE [place] IN LAST 30 DAYS: No - Related Data Allergies/Adverse Reactions: acetaminophen [From Tylenol] Adverse Reaction (Verified 10/13/17 13:34) Past Medical History - Past Medical History Cardiac Medical History: Reports: Hx Hypertension Renal/ Medical History: Denies: Hx Peritoneal Dialysis - Immunizations Immunizations up to date: Yes Hx Diphtheria, Pertussis, Tetanus Vaccination: Yes History of Influenza Vaccine for 02/2017 - 07/2017 Season: Unknown Physical Exam - Abdominal Tenderness: Tender - Left lower quadrant Doctor's Discharge - Discharge Referrals: ANSLEY CM DO [Primary Care Provider] - Follow up as needed
[2018-06-12 23:57] LABS: ANION GAP 8 (5-19); BLOOD UREA NITROGEN 17 mg/dL (7-20); CALCIUM 9.6 mg/dL (8.4-10.2); CARBON DIOXIDE 26 mmol/L (22-30); CHLORIDE 107 mmol/L (98-107); GLUCOSE 88 mg/dL (75-110); POTASSIUM 3.9 mmol/L (3.6-5.0); SODIUM 140.6 mmol/L (137-145)
[2018-06-13] MEDS ORDERED: ONDANSETRON HCL INJ/PF 4 MG/2 ML SDV IV ONE (00:19)
--- NOTE | 2018-06-13 01:03 | RADIOLOGY REPORT (SQ) ---
EXAM DESCRIPTION: CT ABDOMEN WITH IV CONTRAST COMPLETED DATE/TME: 06/12/2018 23:05 CLINICAL HISTORY: 43 years, Male, LLQ abdominal pain COMPARISON: 10/13/2017 CT TECHNIQUE: 590 Images stored on PACS. All CT scanners at this facility use dose modulation, iterative reconstruction, and/or weight based dosing when appropriate to reduce radiation dose to as low as reasonably achievable (ALARA). [facility]: Dose Right [facility]: CareDose [facility]: Dose Right [facility]: Teradose 4D [facility]: [employer] LIMITATIONS: None. FINDINGS: Limited evaluation of the lung bases is unremarkable. Osseous structures are grossly intact. Diffuse fatty infiltrative change to the liver. The spleen, adrenal glands, pancreas, are unremarkable. Nonobstructing renal calculi bilaterally. Simple left renal cyst, measuring 14 x 14 mm. Kidneys are otherwise unremarkable. Gallbladder is present, somewhat contracted. No gross evidence for bowel obstruction. Normal appendix. Sigmoid diverticulosis. There is also wall thickening of the sigmoid colon with minor surrounding inflammation consistent with acute diverticulitis. No abscess, free air, or free fluid. Urinary bladder not distended, limiting its evaluation. IMPRESSION: Acute sigmoid diverticulitis. No abscess, free air, or free fluid. Fatty infiltrative change to the liver. Nonobstructing renal calculi bilaterally. Simple left renal cyst. TECHNICAL DOCUMENTATION: Quality ID # [id number]: Final reports with documentation of one or more dose reduction techniques (e.g., Automated exposure control, adjustment of the mA and/or kV according to patient size, use of iterative reconstruction technique) copyright 2010 [employer]- All Rights Reserved
[2018-06-13 01:55] LABS: ABSOLUTE BASOPHILS # (AUTO) 0.1 10^3/uL (0.0-0.2); ABSOLUTE EOSINOPHILS # (AUTO) 0.5 10^3/uL (0.0-0.6); ABSOLUTE LYMPHOCYTES (AUTO) 3.1 10^3/uL (0.5-4.7); ABSOLUTE NEUT (AUTO) 6.7 10^3/uL (1.7-8.2); EOSINOPHILS % (AUTO) 4.2 % (0-6); HEMATOCRIT 48.2 % (37.9-51.0); HEMOGLOBIN 16.3 g/dL (13.5-17.0); LYMPHOCYTES % (AUTO) 27.1 % (13-45); MEAN CORPUSCULAR HEMOGLOBIN 31.5 pg (27.0-33.4); MEAN CORPUSCULAR HGB CONC 33.8 g/dL (32.0-36.0); MEAN CORPUSCULAR VOLUME 93 fl (80-97); MONOCYTES % (AUTO) 8.6 % (3-13); PLATELET COUNT 290 10^3/uL (150-450); RED BLOOD COUNT 5.17 10^6/uL (4.35-5.55); RED CELL DISTRIBUTION WIDTH 13.4 % (11.5-14.0); SEGMENTED NEUTROPHILS % (AUTO) 59.1 % (42-78); TOTAL CELLS COUNTED % (AUTO) 100 %; WHITE BLOOD COUNT 11.3 10^3/uL (4.0-10.5)
[2018-06-13] MEDS ORDERED: AMOXICILLIN TR/POT CLAVULANATE 500-125 MG TAB PO ONE (02:39)
--- NOTE | 2018-06-13 02:41 | ER Document Report ---
ED General - General Chief Complaint: Abdominal Pain Stated Complaint: ABDOMINAL PAIN/RASH Time Seen by Provider: 06/12/18 22:48 Primary Care Provider: STEFANY DIAZ DO [ACTIVE STAFF] - Follow up in 3-5 days (call to make a follow up appointment) Notes: Patient is a 43-year-old male with previous history of diverticulitis who presents with complaint of 2-3 weeks of progressively worsening left lower quadrant abdominal pain. He says it feels very similar to when he had his previous diverticulitis. He has had previous hospitalizations for diverticulitis. He has never had abscess or required surgery for this. He denies objective fever. He said he may have had a subjective fever but he said if he did not have a fever it was low-grade. He denies any vomiting. Patient denies any blood in his stool. Patient second complaint is of a rash. He says this is been come and go for a while now. He says that he has a history of some sensitive skin and he will sometimes gets skin irritation easily. He says that he first noticed this episode of recurring rash after they had a septic tank backup. So this up to take overflowed and the had to put a bunch of towels down in the house. He says they then got any type of detergent to wash her towels in. He says when the rash appears that the itching is red hive-like. TRAVEL OUTSIDE OF THE [place] IN LAST 30 DAYS: No - Related Data Allergies/Adverse Reactions: acetaminophen [From Tylenol] Adverse Reaction (Verified 10/13/17 13:34) Past Medical History - Social History Smoking Status: Current Every Day Smoker Frequency of alcohol use: None Drug Abuse: None Family History: Hypertension Patient has suicidal ideation: No Patient has homicidal ideation: No - Past Medical History Cardiac Medical History: Reports: Hx Hypertension Renal/ Medical History: Denies: Hx Peritoneal Dialysis - Immunizations Immunizations up to date: Yes Hx Diphtheria, Pertussis, Tetanus Vaccination: Yes Review of Systems - Review of Systems Notes: My Normal Review Basic REVIEW OF SYSTEMS: CONSTITUTIONAL : Denies fever, chills, or sweats. Denies recent illness. EENT: Denies eye, ear, throat, or mouth pain or symptoms. Denies nasal or sinus congestion. CARDIOVASCULAR: Denies chest pain. RESPIRATORY: Denies cough, cold, or chest congestion. Denies shortness of breath, difficulty breathing, or wheezing. GASTROINTESTINAL: Left lower quadrant abdominal pain. Denies nausea, vomiting, or diarrhea. MUSCULOSKELETAL: Denies neck or back pain or joint pain or swelling. SKIN: Pruritic red rash NEUROLOGICAL: Denies altered mental status or loss of consciousness. Denies headache. Denies weakness or paralysis or loss of use of either side. Denies problems with gait or speech. Denies sensory or motor loss. ALL OTHER SYSTEMS REVIEWED AND NEGATIVE. Physical Exam - Vital signs Vitals: Temp Pulse Resp BP Pulse Ox 98.8 F 101 H 17 148/104 H 100 06/12/18 22:33 06/12/18 22:33 06/12/18 22:33 06/12/18 22:33 06/12/18 22:33 - Notes Notes: General Appearance: Well nourished, alert, cooperative, no acute distress, no obvious discomfort. Well-appearing. Vitals: reviewed, See vital signs table. Head: no swelling or tenderness to the head Eyes: PERRL, EOMI, Conjuctiva clear Mouth: No decreasd moisture Lungs: No wheezing, No rales, No rhonci, No accessory muscle use, good air exchange bilaterally. Heart: Normal rate, Regular rythm, No murmur, no rub Abdomen: Normal BS, soft, No rigidity, mild right left lower abdominal tenderness to palpation., No guarding, no rebound, no abdominal masses, no organomegaly Extremities: strength 5/5 in all extremities, good pulses in all extremities, no swelling or tenderness in the extremities, no edema. Skin: warm, dry, appropriate color, small erythematous macule type areas that are currently right now more in the hands and extremities. He has pictures on his phone from a they have been on his torso as well. There is a blanchable. They are nonpainful. They are pruritic. Neuro: speech clear, oriented x 3, normal affect, responds appropriately to questions. Course - Re-evaluation Re-evalutation: 06/13/18 06:58 Patient is very well-appearing on exam. I think is appropriate for outpatient management of his diverticulitis. I have prescribed Augmentin. I informed him that the rash could be coming from the detergent that he is using. I encouraged him to stop using this detergent and switch to a dye free perfume free detergent. He says that his skin has been especially sensitive now for a while. I will refer him to a sport psychologist due to the recurrence of this rash. I encouraged him return to ER if he has fevers, vomiting, worsening abdominal pain, or if he feels unwell. Patient agrees with plan will be discharged home. Dictation of this chart was performed using voice recognition software; therefore, there may be some unintended grammatical errors. - Vital Signs Vital signs: Temp Pulse Resp BP Pulse Ox 98.7 F 78 16 148/111 H 97 06/13/18 02:59 06/13/18 02:59 06/13/18 02:59 06/13/18 02:59 06/13/18 02:59 - Laboratory Result Diagrams: 06/12/18 23:20 06/12/18 23:20 Laboratory results interpreted by me: 06/12/18 06/12/18 23:20 23:20 WBC 11.3 H Creatinine 1.26 H Discharge - Discharge Clinical Impression: Diverticulitis, Rash Condition: Good Disposition: HOME, SELF-CARE Additional Instructions: Diverticulitis You have been diagnosed as having diverticulitis. This is an inflammation of a small pouch attached to the colon, called a diverticulum. Many of these small pouches can form on the colon as you get older. They are often caused by constipation. When inflamed or infected, symptoms arise -- usually abdominal pain, constipation or diarrhea, fever, and blood in the stool. Severe diverticulitis may require hospitalization. More mild cases are usually treated with antibiotics and clear liquid diet. As you improve, a diet low in residue (one which forms little stool) is prescribed. When you are better, you should eat a high-fiber diet. Stool softeners (like Metamucil) are usually recommended. Call the doctor or go to the hospital if there is increasing pain, vomiting, high fever, large amounts of blood passed, or if bowel movements cease. Please follow-up with your doctor in 2-3 days for reevaluation of your diverticulitis. I have also given you the phone number to the sport psychologist, Dr Michael Diaz. Please follow-up with him for reevaluation due to recurrent rash. Return to ER immediately if you have any difficulty breathing or swallowing or if the rash is worsening. Please take away the new detergent that you have been using and start using lodger detergent has no dye and no scents. Please follow up with your doctor in 2-3 days for reevaluation. Prescriptions: Amox Tr/Potassium Clavulanate [Augmentin 875-125 Tablet] 1 tab PO BID 10 Days tablet Referrals: STEFANY DIAZ DO [ACTIVE STAFF] - Follow up in 3-5 days (call to make a follow up appointment)
[2018-06-13 03:00] VITALS: BP 148/111
== END 2018-06-13 03:12 | disposition home or self-care (01) ==
LOC: ER 21:45
DX: K57.92 Diverticulitis of intestine, part unspecified, without perforation or abscess without bleeding (principal); R21 Rash and other nonspecific skin eruption; R10.32 Left lower quadrant pain; F17.200 Nicotine dependence, unspecified, uncomplicated; I10 Essential (primary) hypertension; Z88.6 Allergy status to analgesic agent
CPT/HCPCS: 99284; 96374; 36415; 85025; 80048; 74160; J3490; J2270; J2405

== ENCOUNTER 2018-12-02 22:44 | Emergency (ER) | payer MEDICAID ==
[2018-12-03] MEDS ORDERED: MORPHINE SULFATE 10 MG/ML INJ IV ONE (00:20)
[2018-12-03] MEDS ORDERED: NORMAL SALINE 1000 ML 1,000 ML IV ONE (00:20)
[2018-12-03] MEDS ORDERED: ONDANSETRON HCL INJ/PF 4 MG/2 ML SDV IV ONE (00:20)
[2018-12-03 01:38] LABS: ABSOLUTE BASOPHILS # (AUTO) 0.1 10^3/uL (0.0-0.2); ABSOLUTE EOSINOPHILS # (AUTO) 0.3 10^3/uL (0.0-0.6); ABSOLUTE LYMPHOCYTES (AUTO) 2.5 10^3/uL (0.5-4.7); ABSOLUTE MONOCYTES (AUTO) 0.8 10^3/uL (0.1-1.4); ABSOLUTE NEUT (AUTO) 6.4 10^3/uL (1.7-8.2); BASOPHILS % (AUTO) 1.3 % (0-2); EOSINOPHILS % (AUTO) 2.8 % (0-6); HEMATOCRIT 43.8 % (37.9-51.0); HEMOGLOBIN 14.7 g/dL (13.5-17.0); LYMPHOCYTES % (AUTO) 24.4 % (13-45); MEAN CORPUSCULAR HEMOGLOBIN 31.3 pg (27.0-33.4); MEAN CORPUSCULAR HGB CONC 33.7 g/dL (32.0-36.0); MEAN CORPUSCULAR VOLUME 93 fl (80-97); MONOCYTES % (AUTO) 8.2 % (3-13); PLATELET COUNT 254 10^3/uL (150-450); RED BLOOD COUNT 4.72 10^6/uL (4.35-5.55); RED CELL DISTRIBUTION WIDTH 13.5 % (11.5-14.0); SEGMENTED NEUTROPHILS % (AUTO) 63.3 % (42-78); TOTAL CELLS COUNTED % (AUTO) 100 %; WHITE BLOOD COUNT 10.1 10^3/uL (4.0-10.5)
[2018-12-03 01:44] LABS: APPEARANCE,URINE CLEAR; BILIRUBIN,URINE NEGATIVE (NEGATIVE); COLOR,URINE YELLOW; GLUCOSE, URINE NEGATIVE (NEGATIVE); KETONES,URINE NEGATIVE (NEGATIVE); LEUKOCYTE ESTERASE,URINE NEGATIVE (NEGATIVE); NITRITE,URINE NEGATIVE (NEGATIVE); PROTEIN,URINE NEGATIVE (NEGATIVE); URINE SPECIFIC GRAVITY 1.014; UROBILINOGEN,URINE NEGATIVE mg/dL (<2.0)
[2018-12-03 01:58] LABS: ALANINE AMINOTRANSFERASE 47 U/L (21-72); ALBUMIN 3.6 g/dL (3.5-5.0); ALKALINE PHOSPHATASE 77 U/L (38-126); ASPARTATE AMINO TRANSFERASE 34 U/L (17-59); BILIRUBIN,DIRECT 0.3 mg/dL (0.0-0.4); BILIRUBIN,TOTAL 0.6 mg/dL (0.2-1.3); BLOOD UREA NITROGEN 17 mg/dL (7-20); GLUCOSE 85 mg/dL (75-110); POTASSIUM 4.2 mmol/L (3.6-5.0); TOTAL PROTEIN 7.4 g/dL (6.3-8.2)
[2018-12-03 02:03] LABS: ANION GAP 5 (5-19); CARBON DIOXIDE 29 mmol/L (22-30); CHLORIDE 106 mmol/L (98-107)
--- NOTE | 2018-12-03 04:08 | RADIOLOGY REPORT (SQ) ---
EXAM: CT abdomen and pelvis with IV contrast CLINICAL DATA: 43-year-old male with left upper quadrant and left lower quadrant pain, history of diverticulitis TECHNICAL DATA: Axial CT imaging of the abdomen and pelvis was performed following the administration of intravenous contrast.. Sagittal and coronal reconstructed images were then performed. The CT study is performed according to ALARA (as low as reasonably achievable) or ALARA/IMAGE GENTLY, with automatic adjustment of mA and/or kV according to patient size. Performed on: 12/03/2018 at 3:01 AM. Comparison: Prior CT abdomen and pelvis performed on 06/13/2018 FINDINGS: Lung bases: The lung bases are clear. There is minimal bibasilar atelectasis and/or fibrosis. Liver: The liver is mildly enlarged and measures 19 cm in craniocaudal dimension. No focal hepatic abnormalities are identified. There is decreased attenuation of the liver commonly due to fatty infiltration. The appearance of the liver is unchanged when compared to the prior study. Spleen:The spleen is normal is size, configuration and attenuation. Gallbladder and bile duct: The gallbladder is well distended and unremarkable. There is no biliary ductal dilatation. Pancreas: The pancreas is grossly normal in size and configuration. Adrenal Glands:The adrenal glands are normal in size and configuration. Kidneys:The kidneys are normal in size and configuration. There is no evidence of hydronephrosis. There are bilateral punctate nonobstructing renal calculi. There is a stable 2.2 cm cyst arising from the midpole of the left kidney. Stomach:The stomach is grossly normal. There is no definite hiatal hernia. Bowel:The bowel gas pattern is non specific and non obstructive. There is scattered colonic diverticulosis. There is no CT evidence to suggest acute diverticulitis at this time. Appendix: The appendix is normal. Free air:There is no evidence of free air. Free fluid: There is no evidence of free fluid. Vasculature: The aorta is normal in caliber and contour. The inferior vena cava is grossly unremarkable. Lymphadenopathy: No pathologic lymphadenopathy is identified. Bladder: The bladder is well distended and smooth in contour. There is a coarse calcification along the left posterior bladder wall measuring approximately 1.0 x 0.7 cm in cross-sectional diameter. This does not result in left ureteral dilatation or hydronephrosis. Reproductive: The prostate gland is grossly within normal limits. Bones: No acute osseous abnormalities are identified. Soft tissues: No focal soft tissue abnormalities are identified. IMPRESSION: 1. No evidence of acute intra-abdominal or intrapelvic pathology. 2. No CT evidence to suggest acute diverticulitis. There is scattered colonic diverticulosis. 3. Coarse calcification along the left posterior bladder wall measuring approximately 1.0 x 0.7 cm in cross-sectional diameter. There is no evidence of ureteral dilatation or hydronephrosis. This calcification has been present since 10/13/2017. It is unclear if this calcification is intrinsic or extrinsic to the bladder. 4. Hepatomegaly and fatty infiltration of the liver. 5. Bilateral nonobstructing nephrolithiasis and stable left renal cyst.
[2018-12-03] MEDS ORDERED: ONDANSETRON ODT 4 MG TAB (6 TAB/ER DISP) PO PRN (05:24)
--- NOTE | 2018-12-03 05:27 | ER Document Report ---
ED GI/ - General Chief Complaint: Abdominal Pain Stated Complaint: POSSIBLE INFECTION Time Seen by Provider: 12/02/18 23:55 Primary Care Provider: ANSLEY CM DO [Primary Care Provider] - Follow up as needed Mode of Arrival: Ambulatory Information source: Patient Notes: Patient is an otherwise healthy 43-year-old male presented to the emergency department chief complaint of left upper and left lower quadrant abdominal pain that is been going on for 2 weeks. Patient reports associated nausea with diarrhea, denies any vomiting or fever. Patient reports history of diverticulitis and hypertension. Patient is concerned he is having a flareup of his diverticulitis. TRAVEL OUTSIDE OF THE [place] IN LAST 30 DAYS: No - Related Data Allergies/Adverse Reactions: acetaminophen [From Tylenol] Adverse Reaction (Verified 10/13/17 13:34) Past Medical History - General Information source: Patient - Social History Smoking Status: Current Every Day Smoker Frequency of alcohol use: None Drug Abuse: None Family History: Hypertension Patient has suicidal ideation: No Patient has homicidal ideation: No - Past Medical History Cardiac Medical History: Reports: Hx Hypertension Renal/ Medical History: Denies: Hx Peritoneal Dialysis - Immunizations Immunizations up to date: Yes Hx Diphtheria, Pertussis, Tetanus Vaccination: Yes Review of Systems - Review of Systems Constitutional: No symptoms reported EENT: No symptoms reported Cardiovascular: No symptoms reported Respiratory: No symptoms reported Gastrointestinal: Abdominal pain, Diarrhea, Nausea. denies: Vomiting Genitourinary: No symptoms reported Male Genitourinary: No symptoms reported Musculoskeletal: No symptoms reported Skin: No symptoms reported Hematologic/Lymphatic: No symptoms reported Neurological/Psychological: No symptoms reported Physical Exam - Vital signs Vitals: Temp Pulse Resp BP Pulse Ox 98.1 F 74 18 114/81 97 12/02/18 23:08 12/02/18 23:08 12/02/18 23:08 12/02/18 23:08 12/02/18 23:08 - Notes Notes: PHYSICAL EXAMINATION: GENERAL: Well-appearing, well-nourished and in no acute distress. HEAD: Atraumatic, normocephalic. EYES: Pupils equal round and reactive to light, extraocular movements intact, sclera anicteric, conjunctiva are normal. ENT: Nares patent, oropharynx clear without exudates. Moist mucous membranes. NECK: Normal range of motion, supple without lymphadenopathy LUNGS: Breath sounds clear to auscultation bilaterally and equal. No wheezes rales or rhonchi. HEART: Regular rate and rhythm without murmurs ABDOMEN: Soft, nondistended abdomen. Tenderness to palpation to the left lower quadrant. No guarding, no rebound. No masses appreciated. Musculoskeletal: Normal range of motion, no pitting or edema. No cyanosis. NEUROLOGICAL: Cranial nerves grossly intact. Normal speech, normal gait. Normal sensory, motor exams PSYCH: Normal mood, normal affect. SKIN: Warm, Dry, normal turgor, no rashes or lesions noted. Course - Re-evaluation Re-evalutation: Laboratory 12/03/18 12/03/18 12/03/18 01:21 01:21 01:21 WBC 10.1 RBC 4.72 Hgb 14.7 Hct 43.8 MCV 93 MCH 31.3 MCHC 33.7 RDW 13.5 Plt Count 254 Seg Neutrophils % 63.3 Lymphocytes % 24.4 Monocytes % 8.2 Eosinophils % 2.8 Basophils % 1.3 Absolute Neutrophils 6.4 Absolute Lymphocytes 2.5 Absolute Monocytes 0.8 Absolute Eosinophils 0.3 Absolute Basophils 0.1 Sodium 139.5 Potassium 4.2 Chloride 106 Carbon Dioxide 29 Anion Gap 5 BUN 17 Creatinine 1.10 Est GFR ( Amer) > 60 Est GFR (Non-Af Amer) > 60 Glucose 85 Calcium 9.0 Total Bilirubin 0.6 Direct Bilirubin 0.3 Neonat Total Bilirubin Not Reportable Neonat Direct Bilirubin Not Reportable Neonat Indirect Bili Not Reportable AST 34 ALT 47 Alkaline Phosphatase 77 Total Protein 7.4 Albumin 3.6 Lipase 111.0 Urine Color YELLOW Urine Appearance CLEAR Urine pH 7.0 Ur Specific [place] 1.014 Urine Protein NEGATIVE Urine Glucose (UA) NEGATIVE Urine Ketones NEGATIVE Urine Blood NEGATIVE Urine Nitrite NEGATIVE Urine Bilirubin NEGATIVE Urine Urobilinogen NEGATIVE Ur Leukocyte Esterase NEGATIVE Urine WBC (Auto) 1 Urine RBC (Auto) 1 Squamous Epi Cells Auto <1 Urine Mucus (Auto) RARE Urine Ascorbic Acid NEGATIVE Abdomen/Pelvis CT 12/03/18 02:35 IMPRESSION: 1. No evidence of acute intra-abdominal or intrapelvic pathology. 2. No CT evidence to suggest acute diverticulitis. There is scattered colonic diverticulosis. 3. Coarse calcification along the left posterior bladder wall measuring approximately 1.0 x 0.7 cm in cross-sectional diameter. There is no evidence of ureteral dilatation or hydronephrosis. This calcification has been present since 10/13/2017. It is unclear if this calcification is intrinsic or extrinsic to the bladder. 4. Hepatomegaly and fatty infiltration of the liver. 5. Bilateral nonobstructing nephrolithiasis and stable left renal cyst. Labs as recorded above are unremarkable today. CT the abdomen pelvis does show diverticulosis but no diverticulitis. All of this was discussed with the patient. Patient continues to appear well, his vital signs have been within normal limits and he does not appear to be in any acute distress. Patient will be discharged home at this time with ED return precautions. Patient verbalizes understanding and agreement with this plan. The patient's emergency department workup and current diagnosis were explained to the patient and or family. Follow-up instructions were provided. Medications if prescribed were discussed. Instructions for when to return to the emergency department including specific worrisome symptoms were discussed with the patient and/or family. - Vital Signs Vital signs: Temp Pulse Resp BP Pulse Ox 97.8 F 84 16 154/68 H 97 12/03/18 05:45 12/03/18 05:45 12/03/18 05:45 12/03/18 05:45 12/02/18 23:08 - Laboratory Result Diagrams: 12/03/18 01:21 12/03/18 01:21 Discharge - Discharge Clinical Impression: Nausea Abdominal pain Qualifiers: Abdominal location: unspecified location Qualified Code(s): R10.9 - Unspecified abdominal pain Condition: Stable Disposition: HOME, SELF-CARE Additional Instructions: Abdominal Pain There are many causes of abdominal pain. Pain can mean a serious problem requiring surgery (such as appendicitis). It can also be an innocent problem that goes away on its own (such as a viral infection). Often, time must pass to determine the cause of pain. The physician does not feel that hospitalization is necessary, at present. Things may change within the next 24 hours. Call the doctor or come back for re- examination if any problems occur, such as: (1) Pain that becomes more severe, steady, or becomes concentrated in one specific area. Also, pain that is more severe with movement or coughing. (2) Vomiting that persists or becomes more frequent. (3) Blood in the vomitus, urine, or bowel movements. Blood in the stool may have a tarry or black appearance. (4) Shaking chills or fever greater than 100 degrees F. (5) The abdomen becomes more distended or swollen. (6) Bowel movements cease. (7) Failure to improve as expected. Your lab work-up and CT scan today were negative for any acute findings. You are not having a diverticulitis flareup at this time. Take the nausea medication as prescribed. You may take 1 to 2 tablets every 4-6 hours. Continue to take ibuprofen 600 mg every 6 hours for pain. Return to the emergency department if you experience any of the above symptoms especially persistent abdominal pain with fever. Please call your primary care provider to schedule a follow-up I would like them to recheck you in the next 2-3 days. Prescriptions: Ondansetron [Zofran Odt 4 mg Tablet] 1 - 2 tab PO Q4H PRN #15 tab.rapdis PRN Reason: For Nausea/Vomiting Forms: Return to Work Referrals: ANSLEY CM DO [Primary Care Provider] - Follow up as needed
[2018-12-03 05:47] VITALS: BP 154/68
== END 2018-12-03 05:45 | disposition home or self-care (01) ==
LOC: ER 22:44
DX: N20.0 Calculus of kidney (principal); N28.1 Cyst of kidney, acquired; R10.12 Left upper quadrant pain; R10.32 Left lower quadrant pain; R10.814 Left lower quadrant abdominal tenderness; R11.0 Nausea; K57.30 Diverticulosis of large intestine without perforation or abscess without bleeding; N32.89 Other specified disorders of bladder; K76.0 Fatty (change of) liver, not elsewhere classified; R19.7 Diarrhea, unspecified; I10 Essential (primary) hypertension; F17.200 Nicotine dependence, unspecified, uncomplicated; Z87.19 Personal history of other diseases of the digestive system
CPT/HCPCS: 99284; 96361; 96374; 36415; 96375; 83690; 85025; 80053; 81001; 74177; J2270; J2405; J7030

== ENCOUNTER 2019-02-07 17:26 | Emergency (ER) | payer MEDICAID ==
[2019-02-07] MEDS ORDERED: ASPIRIN 81 MG TABLET, CHEWABLE PO ONE (18:53)
--- NOTE | 2019-02-07 18:56 | ER Document Report ---
ED Medical Screen (RME) - General Chief Complaint: Chest Pain Stated Complaint: CHEST PRESSURE Primary Care Provider: ANSLEY CM DO [Primary Care Provider] - Follow up as needed Mode of Arrival: Ambulatory Information source: Patient Notes: 44-year-old male presented to ED for complaint of tingling going down his left side down his arm. He states he went to the urgent care earlier today to see if he could get a inhaler for a heaviness and cough. He states while he was there they told him that he needed to come to the emergency room and get a EKG for his chest heaviness. He does have a history of asthma and high blood pressure. He smokes a pack a day does not drink or do any drugs. 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 He is alert oriented respirations regular and unlabored speaking in full sentences walks with a even steady gait. I have greeted and performed a rapid initial assessment of this patient. A comprehensive ED assessment and evaluation of the patient, analysis of test results and completion of medical decision making process will be conducted by an additional ED providers. TRAVEL OUTSIDE OF THE [place] IN LAST 30 DAYS: No - Related Data Allergies/Adverse Reactions: acetaminophen [From Tylenol] Adverse Reaction (Verified 02/07/19 18:48) Past Medical History - Social History Chew tobacco use (# tins/day): No Frequency of alcohol use: None Drug Abuse: None - Past Medical History Cardiac Medical History: Reports: Hx Hypertension Renal/ Medical History: Denies: Hx Peritoneal Dialysis - Immunizations Immunizations up to date: Yes Hx Diphtheria, Pertussis, Tetanus Vaccination: Yes Physical Exam - Vital signs Vitals: Temp Pulse Resp BP Pulse Ox 98.0 F 79 16 120/86 H 99 02/07/19 17:42 02/07/19 17:42 02/07/19 17:42 02/07/19 17:42 02/07/19 17:42 Course - Vital Signs Vital signs: Temp Pulse Resp BP Pulse Ox 98.0 F 79 16 120/86 H 99 02/07/19 17:42 02/07/19 17:42 02/07/19 17:42 02/07/19 17:42 02/07/19 17:42 Doctor's Discharge - Discharge Referrals: ANSLEY CM DO [Primary Care Provider] - Follow up as needed
--- NOTE | 2019-02-07 19:27 | RADIOLOGY REPORT (SQ) ---
EXAM DESCRIPTION: CHEST 2 VIEWS COMPLETED DATE/TIME: 02/07/2019 7:16 pm REASON FOR STUDY: chest heavy tingling down left arm COMPARISON: AP view of the chest from 06/23/2008. EXAM PARAMETERS: NUMBER OF VIEWS: two views TECHNIQUE: Digital Frontal and Lateral radiographic views of the chest acquired. RADIATION DOSE: NA LIMITATIONS: none FINDINGS: LUNGS AND PLEURA: No consolidation, pleural effusion or pneumothorax. MEDIASTINUM AND HILAR STRUCTURES: No mediastinal or hilar contour abnormality. HEART AND VASCULAR STRUCTURES: The cardiac silhouette and pulmonary vasculature are within normal ann its. BONES: No acute findings. HARDWARE: None. OTHER: No other finding. IMPRESSION: No acute cardiopulmonary process. TECHNICAL DOCUMENTATION: JOB ID: [id number] [email or web address] Rights Reserved Reading location - IP/workstation name: [email or web address]
[2019-02-07 19:41] LABS: ABSOLUTE BASOPHILS # (AUTO) 0.1 10^3/uL (0.0-0.2); ABSOLUTE EOSINOPHILS # (AUTO) 0.2 10^3/uL (0.0-0.6); ABSOLUTE LYMPHOCYTES (AUTO) 1.8 10^3/uL (0.5-4.7); ABSOLUTE NEUT (AUTO) 14.3 10^3/uL (1.7-8.2); BASOPHILS % (AUTO) 0.4 % (0-2); EOSINOPHILS % (AUTO) 1.1 % (0-6); HEMATOCRIT 49.4 % (37.9-51.0); HEMOGLOBIN 16.8 g/dL (13.5-17.0); LYMPHOCYTES % (AUTO) 10.2 % (13-45); MEAN CORPUSCULAR HEMOGLOBIN 31.6 pg (27.0-33.4); MEAN CORPUSCULAR HGB CONC 33.9 g/dL (32.0-36.0); MEAN CORPUSCULAR VOLUME 93 fl (80-97); MONOCYTES % (AUTO) 5.9 % (3-13); PLATELET COUNT 283 10^3/uL (150-450); RED BLOOD COUNT 5.31 10^6/uL (4.35-5.55); RED CELL DISTRIBUTION WIDTH 12.8 % (11.5-14.0); SEGMENTED NEUTROPHILS % (AUTO) 82.4 % (42-78); TOTAL CELLS COUNTED % (AUTO) 100 %; WHITE BLOOD COUNT 17.4 10^3/uL (4.0-10.5)
[2019-02-07 19:51] LABS: INTERNATIONAL RATION (INR) 0.93; PROTHROMBIN TIME 12.5 SEC (11.4-15.4)
[2019-02-07 19:52] LABS: PARTIAL THROMBOPLASTIN TIME 31.3 SEC (23.5-35.8)
[2019-02-07 19:58] LABS: ALBUMIN 4.2 g/dL (3.5-5.0); ALKALINE PHOSPHATASE 100 U/L (38-126); ANION GAP 9 (5-19); ASPARTATE AMINO TRANSFERASE 44 U/L (17-59); BILIRUBIN,DIRECT 0.2 mg/dL (0.0-0.4); BILIRUBIN,TOTAL 0.6 mg/dL (0.2-1.3); BLOOD UREA NITROGEN 18 mg/dL (7-20); CARBON DIOXIDE 27 mmol/L (22-30); CHLORIDE 103 mmol/L (98-107); CREATINE KINASE 398 U/L (55-170); GLUCOSE 109 mg/dL (75-110); POTASSIUM 3.8 mmol/L (3.6-5.0); TOTAL PROTEIN 8.2 g/dL (6.3-8.2)
--- NOTE | 2019-02-07 19:58 | EKG REPORT ---
SEVERITY:- NORMAL ECG - SINUS RHYTHM : Confirmed by: Candi Smith MD 07-Feb-2019 19:57:17
[2019-02-07 20:17] LABS: CREATINE KINASE MB 1.79 ng/mL (<4.55); TROPONIN I < 0.012 ng/mL
--- NOTE | 2019-02-07 23:07 | ER Document Report ---
ED Cardiac - General Chief Complaint: Chest Pain Stated Complaint: CHEST PRESSURE Time Seen by Provider: 02/07/19 22:29 Primary Care Provider: ANSLEY CM DO [Primary Care Provider] - Follow up as needed Mode of Arrival: Ambulatory Information source: Patient TRAVEL OUTSIDE OF THE [place] IN LAST 30 DAYS: No - HPI Notes: Patient comes in complaining of shortness of breath nonproductive cough. This been going on for 2 days. Is also had some occasional chest heaviness. He is also had some left arm tingling. He states that the left arm tingling gets worse with exertion but the shortness of breath and chest pressure do not. There is tingling and numbness that radiates down his left arm occasionally. This will last for several minutes. The chest pressure has been intermittent. He has no fevers. He states he does have a history of asthma but has not used any inhalers in approximately 10 years. No fevers. No sweats or chills. No vomiting. No previous coronary artery disease evaluations. He has no significant family history of coronary artery disease. He describes the chest discomfort as a pressure sensation - Related Data Allergies/Adverse Reactions: acetaminophen [From Tylenol] Adverse Reaction (Verified 02/07/19 18:48) Past Medical History - General Information source: Patient - Social History Smoking Status: Current Every Day Smoker Chew tobacco use (# tins/day): No Frequency of alcohol use: None Drug Abuse: None Family History: Hypertension Patient has suicidal ideation: No Patient has homicidal ideation: No - Past Medical History Cardiac Medical History: Reports: Hx Hypertension Renal/ Medical History: Denies: Hx Peritoneal Dialysis - Immunizations Immunizations up to date: Yes Hx Diphtheria, Pertussis, Tetanus Vaccination: Yes Review of Systems - Review of Systems Constitutional: denies: Chills, Fever Cardiovascular: Chest pain. denies: Palpitations Respiratory: Cough, Short of breath Gastrointestinal: denies: Diarrhea, Vomiting -: Yes All other systems reviewed and negative Physical Exam - Vital signs Vitals: Temp Pulse Resp BP Pulse Ox 98.0 F 79 16 120/86 H 99 02/07/19 17:42 02/07/19 17:42 02/07/19 17:42 02/07/19 17:42 02/07/19 17:42 Interpretation: Normal - General General appearance: Appears well, Alert - HEENT Head: Normocephalic, Atraumatic Eyes: Normal Pupils: PERRL - Respiratory Respiratory status: No respiratory distress Chest status: Nontender Breath sounds: Normal Chest palpation: Normal - Cardiovascular Rhythm: Regular Heart sounds: Normal auscultation Murmur: No - Abdominal Inspection: Normal Distension: No distension Bowel sounds: Normal Tenderness: Nontender Organomegaly: No organomegaly - Back Back: Normal, Nontender - Extremities General upper extremity: Normal inspection, Nontender, Normal color, Normal ROM, Normal temperature General lower extremity: Normal inspection, Nontender, Normal color, Normal ROM, Normal temperature, Normal weight bearing. No: Hiram's sign - Neurological Neuro grossly intact: Yes Cognition: Normal Orientation: AAOx4 [place] Coma Scale Eye Opening: Spontaneous [place] Coma Scale Verbal: Oriented [place] Coma Scale Motor: Obeys Commands [place] Coma Scale Total: 15 Speech: Normal Motor strength normal: LUE, RUE, LLE, RLE Sensory: Normal - Psychological Associated symptoms: Normal affect, Normal mood - Skin Skin Temperature: Warm Skin Moisture: Dry Skin Color: Normal Course - Re-evaluation Re-evalutation: 02/07/19 23:02 Patient presents with shortness of breath and cough. He does have an increased white blood cell count. States he does feel like he has cold symptoms. I think this is the most likely diagnosis the patient has an upper respiratory infectio n. I am going to discharge him with steroids antibiotics and an inhaler. Patient also has some chest pressure and some left arm altered sensations. I do not see any evidence that the patient has any strokelike symptoms. I do not feel that what he describes it fits that pattern. I also did see no evidence of coronary artery disease patient has a heart score of 3. I will refer him for outpatient cardiac evaluation. - Vital Signs Vital signs: Temp Pulse Resp BP Pulse Ox 98.0 F 79 16 120/86 H 99 02/07/19 17:42 02/07/19 17:42 02/07/19 17:42 02/07/19 17:42 02/07/19 17:42 - Laboratory Result Diagrams: 02/07/19 19:24 02/07/19 19:24 Laboratory results interpreted by me: 02/07/19 02/07/19 02/07/19 19:24 19:24 19:24 WBC 17.4 H Lymph % (Auto) 10.2 L Absolute Neuts (auto) 14.3 H Seg Neutrophils % 82.4 H Creatine Kinase 398 H TSH 0.33 L - Diagnostic Test Radiology reviewed: Image reviewed, Reports reviewed - EKG Interpretation by Me EKG shows normal: Sinus rhythm Rate: Normal - 71 Rhythm: NSR [place]/QRS: No: Right axis deviation, Left axis deviation Discharge - Discharge Clinical Impression: URI (upper respiratory infection) Qualifiers: URI type: unspecified URI Qualified Code(s): J06.9 - Acute upper respiratory infection, unspecified Condition: Stable Disposition: HOME, SELF-CARE Instructions: Chest Pain of Unclear Cause ([facility]), Upper Respiratory Illness ([facility]) Additional Instructions: Please call your family doctor as soon as possible to discuss outpatient cardiac stress testing. Prescriptions: Cefdinir 300 mg PO BID 7 Days #14 capsule Prednisone 50 mg PO DAILY 5 Days #5 tablet Albuterol Sulfate [Ventolin Hfa 8 gm Mdi (1 Mdi/ER Disp)] 2 puff IH ASDIR PRN #1 inhaler PRN Reason: Referrals: ANSLEY CM DO [Primary Care Provider] - Follow up as needed MALIKA SAAVEDRA MD [ACTIVE STAFF] - Follow up tomorrow
[2019-02-07 23:40] VITALS: BP 134/90
== END 2019-02-07 23:38 | disposition home or self-care (01) ==
LOC: ER 17:26
DX: J06.9 Acute upper respiratory infection, unspecified (principal); J45.909 Unspecified asthma, uncomplicated; R07.89 Other chest pain; R06.02 Shortness of breath; R05 Cough; R20.2 Paresthesia of skin; R20.0 Anesthesia of skin; I10 Essential (primary) hypertension; F17.200 Nicotine dependence, unspecified, uncomplicated
CPT/HCPCS: 36415; 71046; 80053; 82550; 82553; 83735; 84443; 84484; 85025; 85610; 85730; 93005; 93010; 99284

== ENCOUNTER 2019-03-04 02:14 | Emergency (ER) | payer MEDICAID ==
[2019-03-04] MEDS ORDERED: ASPIRIN 81 MG TABLET, CHEWABLE PO ONE (03:07)
--- NOTE | 2019-03-04 03:10 | ER Document Report ---
ED General - General Chief Complaint: Chest Pain Stated Complaint: CHEST PAIN Time Seen by Provider: 03/04/19 03:00 Primary Care Provider: ANSLEY CM DO [Primary Care Provider] - Follow up as needed TRAVEL OUTSIDE OF THE [place] IN LAST 30 DAYS: No - HPI Notes: 44-year-old male stated history of hypertension, is a smoker, presents with chest pain. He states he was leaning over to get something out of a chair when he had sudden onset of a cramping sharp pain in his midsternal region. Lasted a brief time it became more constant but waxing and waning. Nonradiating. Crampy like. Had some preceding cough for the last week and a half. Does smoke cigarettes. No family history of early ACS. No use of cocaine. Moderate intensity, sudden onset, nonradiating. No pleuritic component. No venous thromboembolism risk factors. No other modifying factors, no other associated symptoms, no other provocative or palliative factors. - Related Data Allergies/Adverse Reactions: acetaminophen [From Tylenol] Adverse Reaction (Verified 02/07/19 18:48) Home Medications: hypertension meds. bronchodialator Past Medical History - Social History Smoking Status: Current Every Day Smoker Chew tobacco use (# tins/day): No Frequency of alcohol use: None Drug Abuse: None Family History: Reviewed & Not Pertinent, Hypertension Patient has suicidal ideation: No Patient has homicidal ideation: No - Past Medical History Cardiac Medical History: Reports: Hx Hypertension Renal/ Medical History: Denies: Hx Peritoneal Dialysis - Immunizations Immunizations up to date: Yes Hx Diphtheria, Pertussis, Tetanus Vaccination: Yes Review of Systems - Review of Systems Notes: Review of systems as in the history of present illness, otherwise negative x 10 systems. Physical Exam - Vital signs Vitals: Temp Pulse Resp BP Pulse Ox 98.1 F 74 18 121/68 98 03/04/19 03:02 03/04/19 03:02 03/04/19 03:02 03/04/19 03:02 03/04/19 03:02 - Notes Notes: General: Well developed . HEENT: Normocephalic, atraumatic. Pupils equal round reactive to light. No JVD. Chest: No trauma. Respiratory: Good air exchange, normal excursion. Cardiac: Regular rhythm. No murmurs or gallops. Abdomen: Soft, benign. Nondistended. Nontender. Back: No asymmetry or gross abnormality. Motor: Grossly normal power and tone. Neurologic: Alert, nonfocal. Cranial nerves II-12 are intact. Sensation intact. Vascular: Well perfused. Normal peripheral pulses. Skin: No petechiae or purpura. Course - Re-evaluation Re-evalutation: 03/04/19 03:10 Well-appearing male with the after mentioned symptoms, so any typical chest pain. Does have some although not substantially high risk for ACS. Pain is atypical. Of note, was here proximal a week and a half ago with similar symptoms, negative rule out. May be related to underlying pneumonia, esophageal spasm, typical chest pain, cramps, less likely ACS. Plan proceed with basic labs, EKG, x-ray, reevaluate. Treat with aspirin. 03/04/19 05:42 Patient is done well throughout his ED course. Feels improved, heart score is calculated at 2. He is low risk, offered admission versus discharge and elected for discharge and close outpatient follow-up, risks and benefits are discussed, will return if worsening pain. Daily aspirin will be taken. - Vital Signs Vital signs: Temp Pulse Resp BP Pulse Ox 98.1 F 74 20 110/81 95 03/04/19 03:02 03/04/19 03:02 03/04/19 04:00 03/04/19 04:05 03/04/19 04:05 - Laboratory Result Diagrams: 03/04/19 04:03 03/04/19 04:03 Laboratory results interpreted by me: 03/04/19 04:03 BUN 21 H - EKG Interpretation by Tx EKG shows normal: Sinus rhythm, [place], Intervals, QRS Complexes - No acute ischemic changes Discharge - Discharge Clinical Impression: Chest pain Qualifiers: Chest pain type: unspecified Qualified Code(s): R07.9 - Chest pain, unspecified Condition: Stable Disposition: HOME, SELF-CARE Instructions: Chest Pain of Unclear Cause ([facility]) Referrals: ANSLEY CM DO [Primary Care Provider] - Follow up tomorrow
--- NOTE | 2019-03-04 04:19 | RADIOLOGY REPORT (SQ) ---
EXAM DESCRIPTION: XR CHEST 1 VIEW COMPLETED DATE/TME: 03/04/2019 03:08 CLINICAL HISTORY: 44 years, Male, chest pain COMPARISON: 02/07/2019 NUMBER OF VIEWS: One TECHNIQUE: AP view of the chest LIMITATIONS: None. FINDINGS: The lungs are clear. The heart is normal in size. There is no pneumothorax or pleural effusion. There is no acute fracture. IMPRESSION: No acute cardiopulmonary abnormality. copyright 2010 [employer]- All Rights Reserved
[2019-03-04 04:20] LABS: ABSOLUTE BASOPHILS # (AUTO) 0.1 10^3/uL (0.0-0.2); ABSOLUTE EOSINOPHILS # (AUTO) 0.3 10^3/uL (0.0-0.6); ABSOLUTE LYMPHOCYTES (AUTO) 2.4 10^3/uL (0.5-4.7); ABSOLUTE MONOCYTES (AUTO) 0.9 10^3/uL (0.1-1.4); ABSOLUTE NEUT (AUTO) 6.4 10^3/uL (1.7-8.2); EOSINOPHILS % (AUTO) 3.1 % (0-6); HEMOGLOBIN 15.1 g/dL (13.5-17.0); LYMPHOCYTES % (AUTO) 23.6 % (13-45); MEAN CORPUSCULAR HEMOGLOBIN 31.4 pg (27.0-33.4); MEAN CORPUSCULAR HGB CONC 33.5 g/dL (32.0-36.0); MEAN CORPUSCULAR VOLUME 94 fl (80-97); MONOCYTES % (AUTO) 8.9 % (3-13); PLATELET COUNT 274 10^3/uL (150-450); RED CELL DISTRIBUTION WIDTH 13.3 % (11.5-14.0); SEGMENTED NEUTROPHILS % (AUTO) 63.4 % (42-78); TOTAL CELLS COUNTED % (AUTO) 100 %; WHITE BLOOD COUNT 10.1 10^3/uL (4.0-10.5)
[2019-03-04 04:40] LABS: ALBUMIN 3.5 g/dL (3.5-5.0); ALKALINE PHOSPHATASE 102 U/L (38-126); ANION GAP 7 (5-19); ASPARTATE AMINO TRANSFERASE 29 U/L (17-59); BILIRUBIN,DIRECT 0.1 mg/dL (0.0-0.4); BILIRUBIN,TOTAL 0.3 mg/dL (0.2-1.3); BLOOD UREA NITROGEN 21 mg/dL (7-20); CALCIUM 9.3 mg/dL (8.4-10.2); CARBON DIOXIDE 26 mmol/L (22-30); CHLORIDE 105 mmol/L (98-107); GLUCOSE 110 mg/dL (75-110); POTASSIUM 3.6 mmol/L (3.6-5.0); TOTAL PROTEIN 7.2 g/dL (6.3-8.2)
[2019-03-04] MEDS ORDERED: METOCLOPRAMIDE HCL ORAL SOLN 10 MG/10 ML UDCUP PO ONE (04:58)
[2019-03-04] MEDS ORDERED: MAG HYDROX/AL HYDROX/SIMETH SUSP 30 ML UDCUP PO ONE (04:58)
[2019-03-04] MEDS ORDERED: LIDOCAINE 2% VISCOUS SOLN 20 ML UDCUP PO ONE (04:58)
[2019-03-04 05:49] VITALS: BP 114/83
--- NOTE | 2019-03-04 14:43 | EKG REPORT ---
SEVERITY:- NORMAL ECG - SINUS RHYTHM : Confirmed by: Candi Smith MD 04-Mar-2019 14:42:48
== END 2019-03-04 05:49 | disposition home or self-care (01) ==
LOC: ER 02:14
DX: R07.9 Chest pain, unspecified (principal); I10 Essential (primary) hypertension; F17.200 Nicotine dependence, unspecified, uncomplicated; Z88.6 Allergy status to analgesic agent
CPT/HCPCS: 93005; 36415; 85025; 80053; 84484; 71045; 93010; J3490 ×3; 99285